=== PATIENT | female | born 1940 | race Caucasian/White ===

== ENCOUNTER → 2016-11-09 | Day surgery (SDC) | payer MEDICARE ==
[~2016-11-09] VITALS: Ht 160 cm; Wt 72.5 kg
[~2016-11-09] MED LIST: ALBI1INJ2 SQ; ASPI-110 PO; BUPR150XL PO; CHOL1CHW5 CHEW; FENO PO; HYALURONIDASE/LIDOCAINE/EPINEPHRINE/BUPIVACAINE 4.5 ML SYR LEFT EYE ONE; HYALURONIDASE/LIDOCAINE/EPINEPHRINE/BUPIVACAINE 6 ML SYR LEFT EYE ONE; HYDR-3516 PO; IBUP-232 PO; LIDOCAINE HCL 1% 20 ML VIAL ONE; LIDOCAINE HCL 1% 30 ML VIAL ONE; LISI10TA3 PO; METF850T PO; MIDAZOLAM HCL 2 MG/2 ML VIAL ONE; MULT1TAB84 PO; ONDA4TAB7 SL; PROPARACAINE HCL 0.5% OPHT SOLN 15 ML BTL LEFT EYE ONE; PROPOFOL 200 MG/20 ML AMP ONE; ROSU40 PO; SERT25TA83 PO; SODIUM CHLORID 0.9% 500 ML INJ 500 ML ONE; VITA500T49 PO
[2016-11-09 07:22] VITALS: PULSE 70
[2016-11-09 07:23] VITALS: BP 149/80; PULSE 63; RESP 20; TEMP 98.1; O2SAT 96
[2016-11-09] MEDS: FLURBIPROFEN 0.03% OPHT SOLN 2.5 ML BTL LEFT EYE SCH ×4 (07:30→07:45)
[2016-11-09] MEDS: TROPICAMIDE 1% OPHT SOLN 15 ML BTL LEFT EYE SCH ×4 (07:30→07:45)
[2016-11-09] MEDS: PHENYLEPHRINE HCL 10% OPTH SOLN 5 ML BTL LEFT EYE SCH ×4 (07:30→07:45)
[2016-11-09] MEDS: CYCLOPENTOLATE HCL 1% OPHT SOLN 2 ML BTL LEFT EYE SCH ×4 (07:30→07:45)
[2016-11-09] MEDS: TOBRAMYCIN/DEXAMETHASONE OPTH OINT 3.5 GM TUBE ONE ×2 (09:04→09:20)
[2016-11-09 09:30] VITALS: TEMP 98.1
[2016-11-09 09:55] VITALS: BP 139/68; PULSE 60; RESP 14; O2SAT 96
--- NOTE | 2016-11-12 04:46 | MP ---
cc: JORDI CAMARA MD [facility] #[id number] DATE OF SURGERY: 11/09/2016 PREOPERATIVE DIAGNOSIS: Visually significant cataract, left eye. POSTOPERATIVE DIAGNOSIS: Visually significant cataract, left eye. OPERATION: Phacoemulsification with posterior chamber lens implantation, left eye. SURGEON: Jordi Camara MD ANESTHESIA: Retrobulbar with MAC. COMPLICATIONS: None. PROCEDURE: After informed consent was obtained, the patient was brought into the operative suite and placed on appropriate monitors by the Anesthesia Service. The patient had received a prior retrobulbar injection of local anesthetic by the Anesthesia Service in the holding area. The patient's operative eye was then prepped and draped in the usual sterile fashion. A wire lid speculum was placed. A paracentesis incision was made in the peripheral cornea with a 1 mm laya keratome. The anterior chamber was filled with viscoelastic. The anterior chamber was then entered through a stepped, clear corneal incision using a sharp 3 mm laya keratome. A circular tear capsulorrhexis was then made with a bent needle cystitome. Following hydrodissection of the lens nucleus with balanced saline, phaco-emulsification of the nucleus was performed using a modified chopping technique. The remaining cortex was removed with irrigation/aspiration. The prior two procedures were both performed using the handpieces of the [employer] phaco unit. The capsular bag was then filled with viscoelastic. The intraocular lens was then injected into the capsular bag and positioned. The type of intraocular lens and its power can be found elsewhere in this chart. The remaining viscoelastic was then removed from the anterior chamber with the IA handpiece. The anterior chamber was reformed with balanced saline. The wound was then closed securely with stromal hydration. It was found to be watertight to an intraocular pressure of at least 30 mmHg by palpation. A small amount of balanced salt solution was then removed through the paracentesis site and the intraocular pressure at the end of the case was approximately 20 by palpation. All drapes were then removed. TobraDex ointment was then placed in the eye, which was closed beneath a semi-pressure patch dressing. The patient tolerated this procedure well and left the operating room awake and alert. The patient is to follow-up in my office in the morning. MD CATERINA Harvey/MARYAN /11:45 AM /4:44 AM
== END | disposition home or self-care (01) ==
LOC: CSDC 06:31
PROVIDERS: ATTEND Optometrist Occupational Vision
DX: H25.12 Age-related nuclear cataract, left eye (principal)
CPT/HCPCS: 00142; 66984; J2250; J7040; V2632

== ENCOUNTER 2016-11-24 12:24 | Emergency (ER) | payer MEDICARE ==
[~2016-11-24] VITALS: Ht 160 cm; Wt 73.0 kg
[~2016-11-24 12:24] MED LIST changes: -FENO PO; -HYALURONIDASE/LIDOCAINE/EPINEPHRINE/BUPIVACAINE 4.5 ML SYR LEFT EYE ONE; -HYALURONIDASE/LIDOCAINE/EPINEPHRINE/BUPIVACAINE 6 ML SYR LEFT EYE ONE; -IBUP-232 PO; -LIDOCAINE HCL 1% 20 ML VIAL ONE; -LIDOCAINE HCL 1% 30 ML VIAL ONE; -METF850T PO; -MIDAZOLAM HCL 2 MG/2 ML VIAL ONE; -PROPARACAINE HCL 0.5% OPHT SOLN 15 ML BTL LEFT EYE ONE; -PROPOFOL 200 MG/20 ML AMP ONE; -SERT25TA83 PO; -SODIUM CHLORID 0.9% 500 ML INJ 500 ML ONE
[2016-11-24 12:30] VITALS: BP 161/73; PULSE 64; RESP 16; TEMP 98.9; O2SAT 93
[2016-11-24 13:50] VITALS: RESP 16; O2SAT 97
--- NOTE | 2016-11-24 13:51 | PD ---
HPI Chief Complaint: Musculoskeletal Complaint Time Seen by Provider: 13:49 Travel History International Travel<30 days: No Contact w/Intl Traveler<30days: No Traveled to known affect area: No History of Present Illness HPI Patient comes in complaining of left-sided lower rib/upper abdominal pain began after slipping fall that occurred around 10 AM this morning. Patient states she was sorting newspapers when she went to get up with slipping on the newspapers hitting her left side of stool. Patient had a sharp stabbing pain since is worse with certain movement and deep inspiration. Patient took ibuprofen shortly after the fall and prior coming to the emergency department with minimal to no improvement of her symptoms. Patient denies being on any prescription blood thinners. Denies hitting her head or loss of consciousness. Denies loss or change in bowel or bladder, shortness breath, chest pain, fevers, nausea, or vomiting. PFSH Past Medical History Asthma: No Blood Disorders: No Anxiety: No Depression: Yes Heart Rhythm Problems: No Cancer: No Cardiovascular Problems: Yes High Cholesterol: Yes Chemotherapy: No Chest Pain: No Congestive Heart Failure: No COPD: Yes Cerebrovascular Accident: Yes (IN 1990 RESIDUAL DECREASED VISION) Diabetes: Yes (DIET CONTROLLED WITH PILLS) Patient Takes Glucophage: Yes Diminished Hearing: No Endocrine: Yes Gastrointestinal Disorders: Yes GERD: No Genitourinary: No Headaches: No Hepatitis: No Hiatal Hernia: No Hypertension: No Immune Disorder: No Musculoskeletal: No Neurologic: Yes Psychiatric: Yes Reproductive: No Respiratory: Yes Migraines: Yes Myocardial Infarction: Yes (2001) Radiation Therapy: No Seizures: No Sleep Apnea: No Thyroid Disease: No Ulcer: No Tetanus Vaccination: > 5 Years Influenza Vaccination: No ?: Not Menopausal: Yes Past Surgical History Abdominal Surgery: No AICD: No Appendectomy: No Arteriovenous Shunt: No Cardiac Surgery: Yes (STENT PLACED IN 2001) Cholecystectomy: No Ear Surgery: No Endocrine Surgery: No Eye Surgery: No Genitourinary Surgery: No Gynecologic Surgery: No Insulin Pump: No Joint Replacement: No Neurologic Surgery: Yes (RIGHT CAROTID THROMBOENDARTERECTOMY X 2) Oral Surgery: No Pacemaker: No Thoracic Surgery: No Other Surgery: Yes Social History Alcohol Use: Yes (on occasion) Tobacco Use: No (quit over 20 years ago) Substance Use: No Allergies-Medications (Allergen,Severity, Reaction): Coded Allergies: No Known Allergies (Verified , 11/24/16) Reported Meds & Prescriptions Reported Meds & Active Scripts Active Ibuprofen 600 Mg Tab 600 Mg PO Q8HR PRN Reported Vitamin D3 (Cholecalciferol) 2,000 Unit Chew 2,000 Units CHEW DAILY Vitamin B12 (Cyanocobalamin) 500 Mcg Tab 500 Mcg PO DAILY Multivitamin Adults (Multiple Vitamins W/ Minerals) 1 Tab 1 Tab PO DAILY Lisinopril 10 Mg Tab 10 Mg PO DAILY Tanzeum 4-Pack Inj (Albiglutide) 50 Mg Pfpen 50 Mg SQ Q7D Ondansetron Odt 4 Mg Tab 4 Mg SL Q6HR PRN Crestor (Rosuvastatin Calcium) 40 Mg Tab 40 Mg PO DAILY Wellbutrin Xl 24 HR (Bupropion HCl) 150 Mg Tab 150 Mg PO DAILY Hydrocodone-Acetaminophen 5-325 mg Tab 1 Tab PO Q6H PRN Aspirin 81 (Aspirin) 81 Mg Tabdr 81 Mg PO DAILY Review of Systems Except as stated in HPI: all other systems reviewed are Neg Physical Exam Narrative GENERAL: Well-developed, overly nourished, in no acute distress, and non-ill appearing. SKIN: Warm and dry. HEAD: Atraumatic. Normocephalic. EYES: Pupils equal and round. EOMI. No scleral icterus. No injection or drainage. ENT: No nasal bleeding or discharge. Mucous membranes pink and moist. NECK: Trachea midline. Supple. No nuclear rigidity. CARDIOVASCULAR: Regular rate and rhythm. No murmur appreciated. RESPIRATORY: No accessory muscle use. No respiratory distress. Clear to auscultation. Breath sounds equal bilaterally. Patient reports tenderness over left lateral lower rib cage. There is no crepitus, step-off, or ecchymosis noted. GASTROINTESTINAL: Abdomen soft, tenderness left upper quadrant, nondistended. Hepatic and splenic margins not palpable. Normal bowel sounds 4. No pulsatile mass. MUSCULOSKELETAL: No obvious deformities. No clubbing. No cyanosis. No edema. Full range of motion. NEUROLOGICAL: Awake and alert. No obvious cranial nerve deficits. Motor grossly within normal limits. Normal speech. PSYCHIATRIC: Appropriate mood and affect; insight and judgment normal. Data Data Last Documented VS Vital Signs Date Time Temp Pulse Resp B/P Pulse Ox O2 Delivery O2 Flow Rate FiO2 11/24/16 15:28 79 16 174/82 97 Room Air 11/24/16 12:30 98.9 Orders Ribs, Uni (W/Exp Cxr-Min 3vw) (11/24/16 ) Basic Metabolic Panel (Bmp) (11/24/16 13:48) Complete Blood Count With Diff (11/24/16 13:48) Ct Abd/Pel W Iv Contrast(Rout) (11/24/16 13:48) Iv Access Insert/Monitor (11/24/16 13:48) Ecg Monitoring (11/24/16 13:48) Oximetry (11/24/16 13:48) Sodium Chloride 0.9% Flush (Ns Flush) (11/24/16 14:00) Resp Incentive Spirometry (11/24/16 ) Iohexol 350 Inj (Omnipaque 350 Inj) (11/24/16 15:34) Urinalysis - C+S If Indicated (11/24/16 15:51) Naproxen (Naprosyn) (11/24/16 16:45) Labs Laboratory Tests Test 11/24/16 11/24/16 14:25 16:05 White Blood Count 9.8 TH/MM3 Red Blood Count 5.35 MIL/MM3 Hemoglobin 15.9 GM/DL Hematocrit 46.7 % Mean Corpuscular Volume 87.2 FL Mean Corpuscular Hemoglobin 29.6 PG Mean Corpuscular Hemoglobin 34.0 % Concent Red Cell Distribution Width 14.4 % Platelet Count 239 TH/MM3 Mean Platelet Volume 9.7 FL Neutrophils (%) (Auto) 74.7 % Lymphocytes (%) (Auto) 14.3 % Monocytes (%) (Auto) 7.0 % Eosinophils (%) (Auto) 2.5 % Basophils (%) (Auto) 1.5 % Neutrophils # (Auto) 7.4 TH/MM3 Lymphocytes # (Auto) 1.4 TH/MM3 Monocytes # (Auto) 0.7 TH/MM3 Eosinophils # (Auto) 0.2 TH/MM3 Basophils # (Auto) 0.1 TH/MM3 CBC Comment DIFF FINAL Differential Comment Sodium Level 143 MEQ/L Potassium Level 3.9 MEQ/L Chloride Level 107 MEQ/L Carbon Dioxide Level 28.6 MEQ/L Anion Gap 7 MEQ/L Blood Urea Nitrogen 14 MG/DL Creatinine 1.10 MG/DL Estimat Glomerular Filtration 48 ML/MIN Rate Random Glucose 247 MG/DL Calcium Level 9.3 MG/DL Urine Collection Type CLEAN CATCH Urine Color YELLOW Urine Turbidity CLEAR Urine pH 5.5 Urine Specific [place] GREATER THAN 1.035 Urine Protein NEG mg/dL Urine Glucose (UA) 1000 OR GREATER mg/dL Urine Ketones NEG mg/dL Urine Occult Blood TRACE Urine Nitrite NEG Urine Bilirubin NEG Urine Leukocyte Esterase NEG Urine RBC 0-3 /hpf Urine WBC 0-2 /hpf Urine Squamous Epithelial 0-5 /hpf Cells Microscopic Urinalysis Comment CULT NOT INDICATED MDM Medical Decision Making Medical Screen Exam Complete: Yes Emergency Medical Condition: Yes Differential Diagnosis Pneumothorax, fracture, contusion, splenic laceration, kidney laceration, other Narrative Course The patient suffered rib fracture with chest wall contusion. There is no clinical evidence to suggest intrathoracic injury nor cardiac injury at this time. There was no clinical evidence to suggest flail chest. The patient moves air well without difficulty and is clear to auscultation. Heart sounds are audible without rubs, murmurs or gallops. There is no palpable crepitus. Pulses are symmetrical and strong. Chest Xray was normal without evidence of pneumothorax or hemothorax. The mediastinum appeared within normal limits. Diagnosis was discussed with the patient. The patient was discharged on pain medication and with a Inspiratory Spirometer after training. The patient is to return if develops any worsening pain, difficulty breathing, or if coughs up blood or develops fever. Patient agrees with plan and was recommended to follow up with their regular physician. There is no evidence to suggest intraabdominal injury nor visceral injury. CT examination with IV contrast showed no injury.There is no evidence of injury to the liver,spleen, intestinal injury, or genitourinary/renal/ retroperitoneal injury. There is also no evidence of underlying pelvic injury. Diagnosis was discussed with the patient who agreed with plan. The patient was given warnings to return if pain worsened or changed or developed any vomiting, blood in urine or progressive back pain. The patient was instructed to follow up with their primary physician. Discussed incidental renal and ureteral stones with the patient. Patient states she believes these have been there for years after having lithotripsy done and has not moved or caused her any symptoms including the one in the distal ureter. Patient in no obvious distress upon re-evaluation. All pertinent laboratory/ Radiology result(s) discussed with patient/family. Patient was asked if they wanted to speak to my attending, which the patient did not wish to do at this time. Any questions/concerns in reference to patient diagnosis/condition discussed and clarified prior to patient's discharge. Reinforced sheer importance of close follow up with patient's primary physician or primary care clinic. Instructed patient to return to ED immediately, if symptoms return/ worsen. Pt showed understanding of above instructions. Further instructions and recommendations were detailed in discharge paperwork. Pt ambulated without difficulty out of ED at discharge. Diagnosis Primary Impression: Left rib fracture Qualified Code: S22.42XA - Closed fracture of multiple ribs of left side, initial encounter Additional Impressions: Renal stone Ureteral stone Fall Qualified Code: W19.XXXA - Fall, initial encounter Patient Instructions: General Instructions, Kidney Stones (DC), Rib Fracture ( ED), Ureteral Stones (DC) Additional Instructions: Follow-up with your primary care physician next week for reevaluation and possible urology referral. Take all medication as prescribed. Use your incentive spirometer 10 times per hour as instructed to help prevent pneumonia. Return to the emergency department if symptoms get worse. Med/Other Pt SpecificInfo: Prescription(s) given Scripts Ibuprofen 600 Mg Ing408 Mg PO Q8HR PRN (PAIN) #15 TAB Ref 0 Prov:Rand Monreal MD 11/24/16 Disposition: 01 DISCHARGE HOME Condition: Stable Seth Gordillo Nov 24, 2016 13:51
[2016-11-24] MEDS ORDERED: SODIUM CHLORIDE 0.9% FLUSH 5 ML FLUSH IVF PRN (14:00)
--- NOTE | 2016-11-24 14:30 | RADHPO ---
EXAM DATE/TIME: 11/24/2016 13:51 [facility] COMPARISON: No previous studies available for comparison. INDICATIONS : Fall and landed on magazines MEDICAL HISTORY : Chronic obstructive pulmonary disease. Diabetes SURGICAL HISTORY : ENCOUNTER: Initial ACUITY: 1 day PAIN SCORE: 10/10 LOCATION: Left ribs FINDINGS: The heart is normal in size. The lungs demonstrate mild chronic interstitial changes but are otherwis e clear. Oblique imaging of the ribs is provided. The exam demonstrates fracture of the anterolateral aspect o f the ninth, 10th and 11th ribs. CONCLUSION: 1. Mildly displaced fracture at least 3 left lower ribs. 2. No pneumothorax identified. Nilay Farr MD on November 24, 2016 at 14:26 Board Certified Radiologist. This report was verified electronically.
[2016-11-24 14:33] LABS: AUTOMATED NEUTROPHIL # 7.4 TH/MM3 (1.8-7.7); BASOPHIL # 0.1 TH/MM3 (0-0.2); BASOPHIL % 1.5 % (0.0-2.0); EOSINOPHIL # 0.2 TH/MM3 (0-0.4); EOSINOPHIL % 2.5 % (0.0-4.0); HEMATOCRIT 46.7 % (35.0-46.0); LYMPH % 14.3 % (9.0-44.0); LYMPHOCYTE # 1.4 TH/MM3 (1.0-4.8); MEAN CELL VOLUME 87.2 FL (80.0-100.0); MEAN CORPUSCULAR HEMOGLOBIN 29.6 PG (27.0-34.0); NEUT % 74.7 % (16.0-70.0); PLATELET COUNT 239 TH/MM3 (150-450); RED BLOOD COUNT 5.35 MIL/MM3 (4.00-5.30); RED CELL DISTRIBUTION WIDTH 14.4 % (11.6-17.2); WHITE BLOOD COUNT 9.8 TH/MM3 (4.0-11.0)
[2016-11-24 14:34] LABS: HEMO FLAGS DIFF FINAL
[2016-11-24 14:40] LABS: POTASSIUM 3.9 MEQ/L (3.5-5.1)
[2016-11-24 14:43] LABS: BICARBONATE 28.6 MEQ/L (21.0-32.0)
[2016-11-24 15:28] VITALS: BP 174/82; PULSE 79; RESP 16; O2SAT 97
[2016-11-24] MEDS ORDERED: IOHEXOL 350 MG/ML 10 ML VIAL (for RAD DIAG) IV ONE (15:34)
--- NOTE | 2016-11-24 15:44 | RADHPO ---
EXAM DATE/TIME: 11/24/2016 15:10 [facility] COMPARISON: RIBS LEFT(W PA CXR MIN 3VWS), November 24, 2016, 13:51. INDICATIONS : Fall today. Left lower rib and abdomen pain. IV CONTRAST: 94 cc Omnipaque 350 (iohexol) IV ORAL CONTRAST: No oral contrast ingested. RADIATION DOSE: 14.88 CTDIvol (mGy) MEDICAL HISTORY : Chronic obstructive pulmonary disease. Myocardial infarction. Diabetes. SURGICAL HISTORY : None. ENCOUNTER: Initial ACUITY: 1 day PAIN SCALE: 7/10 LOCATION: Left upper quadrant TECHNIQUE: Volumetric scanning of the abdomen and pelvis was performed. Using automated exposure control and ad justment of the mA and/or kV according to patient size, radiation dose was kept as low as reasonably achievable to obtain optimal diagnostic quality images. FINDINGS: LOWER LUNGS: The visualized lower lungs are clear. There is a small to moderate size retrocardiac hiatal hernia. LIVER: Homogeneous density without lesion. There is no dilation of the biliary tree. No calcified gallston es. There is fatty infiltration of the liver. SPLEEN: Normal size without lesion. PANCREAS: Within normal limits. KIDNEYS: There is moderate left hydronephrosis with mild dilatation of the ureter. There are multiple left dee al calculi measuring up to 7 mm. The right kidney is unremarkable. ADRENAL GLANDS: Within normal limits. VASCULAR: There is no aortic aneurysm. BOWEL/MESENTERY: The stomach, small bowel, and colon demonstrate no acute abnormality. There is no free intraperitone al air or fluid. ABDOMINAL WALL: Within normal limits. RETROPERITONEUM: There is no lymphadenopathy. BLADDER: No wall thickening or mass. REPRODUCTIVE: Within normal limits. INGUINAL: There is no lymphadenopathy or hernia. MUSCULOSKELETAL: There are subtle nondisplaced fractures involving the left and and 12th posterior ribs. CONCLUSION: 1. 4-5 mm distal left ureteral calculus with moderate hydronephrosis. 2. Subtle nondisplaced fractures involving the posterior left 12th and 11th ribs. 3. Multiple left renal calculi. 4. Fatty infiltration of the liver. 5. Small to moderate size retrocardiac hiatal hernia. Allen Zhang MD on November 24, 2016 at 15:34 Board Certified Radiologist. This report was verified electronically.
[2016-11-24 16:11] LABS: BLOOD, URINE TRACE (NEG); KETONE, URINE NEG (NEG); NITRITE,URINE NEG (NEG); PH, URINE 5.5 (5.0-8.5)
[2016-11-24 16:13] LABS: GLUCOSE,URINE 1000 OR GREATER mg/dL (NEG)
[2016-11-24 16:26] LABS: METHOD OF COLLECTION CLEAN CATCH; URINE COLOR YELLOW (YELLW/STRAW)
[2016-11-24 16:28] LABS: WBC, URINE 0-2 /hpf (0-5)
[2016-11-24 16:29] LABS: COMMENT (UR) CULT NOT INDICATED; CULTURE IF INDICATED CULT NOT INDICATED; RBC, URINE 0-3 /hpf (0-3); SQUAMOUS EPITHELIAL CELL URINE 0-5 /hpf (0-5)
[2016-11-24] MEDS ORDERED: IBUP-232 PO (16:39)
[2016-11-24] MEDS ORDERED: NAPROXEN 500 MG TAB PO ONE (16:45)
== END 2016-11-24 16:51 | disposition home or self-care (01) ==
LOC: PHED 12:24 → PHEFT 16:51
DX: S22.42XA Multiple fractures of ribs, left side, initial encounter for closed fracture (principal); S20.219A Contusion of unspecified front wall of thorax, initial encounter; N20.0 Calculus of kidney; N20.1 Calculus of ureter; E78.00 Pure hypercholesterolemia, unspecified; E11.9 Type 2 diabetes mellitus without complications; I25.2 Old myocardial infarction; Z79.84 Long term (current) use of oral hypoglycemic drugs; Z86.59 Personal history of other mental and behavioral disorders; Z87.09 Personal history of other diseases of the respiratory system; Z87.19 Personal history of other diseases of the digestive system; Z86.69 Personal history of other diseases of the nervous system and sense organs; W01.190A Fall on same level from slipping, tripping and stumbling with subsequent striking against furniture, initial encounter
CPT/HCPCS: 71101; 74177; 80048; 81001; 85025; 94150; 99284; Q9967

== ENCOUNTER → 2016-12-14 | Day surgery (SDC) | payer MEDICARE ==
[~2016-12-14] VITALS: Ht 160 cm; Wt 73.0 kg
[~2016-12-14] MED LIST changes: +CYCLOPENTOLATE HCL 1% OPHT SOLN 2 ML BTL ONE; +FLURBIPROFEN 0.03% OPHT SOLN 2.5 ML BTL ONE; +HYALURONIDASE/LIDOCAINE/EPINEPHRINE/BUPIVACAINE 6 ML SYR ONE; +IBUP-232 PO; +LIDOCAINE HCL 1% 30 ML VIAL ONE; +PHENYLEPHRINE HCL 10% OPTH SOLN 5 ML BTL ONE; +PROPARACAINE HCL 0.5% OPHT SOLN 15 ML BTL ONE; +PROPOFOL 200 MG/20 ML AMP ONE; +SODIUM CHLORID 0.9% 500 ML INJ 500 ML ONE; +TOBRAMYCIN/DEXAMETHASONE OPTH OINT 3.5 GM TUBE ONE; +TROPICAMIDE 1% OPHT SOLN 15 ML BTL ONE
[2016-12-14 07:54] VITALS: BP 165/89; PULSE 69; RESP 16; TEMP 97.9; O2SAT 97
[2016-12-14 08:05] VITALS: PULSE 69
[2016-12-14 08:24] VITALS: PULSE 74
[2016-12-14 09:55] VITALS: BP 145/82; PULSE 70; RESP 16; TEMP 98.5; O2SAT 97
--- NOTE | 2016-12-17 06:48 | MP ---
cc: JORDI CAMARA MD [facility] #[id number] DATE OF SURGERY: 12/14/2016 PREOPERATIVE DIAGNOSIS: Visually significant cataract, right eye. POSTOPERATIVE DIAGNOSIS: Visually significant cataract, right eye. OPERATION: Phacoemulsification with posterior chamber lens implantation, right eye. SURGEON: Jordi Camara MD ANESTHESIA: Retrobulbar with MAC. COMPLICATIONS: None. PROCEDURE: After informed consent was obtained, the patient was brought into the operative suite and placed on appropriate monitors by the Anesthesia Service. The patient had received a prior retrobulbar injection of local anesthetic by the Anesthesia Service in the holding area. The patient's operative eye was then prepped and draped in the usual sterile fashion. A wire lid speculum was placed. A paracentesis incision was made in the peripheral cornea with a 1 mm laya keratome. The anterior chamber was filled with viscoelastic. The anterior chamber was then entered through a stepped, clear corneal incision using a sharp 3 mm laya keratome. A circular tear capsulorrhexis was then made with a bent needle cystitome. Following hydrodissection of the lens nucleus with balanced saline, phaco-emulsification of the nucleus was performed using a modified chopping technique. The remaining cortex was removed with irrigation/aspiration. The prior two procedures were both performed using the handpieces of the [employer] phaco unit. The capsular bag was then filled with viscoelastic. The intraocular lens was then injected into the capsular bag and positioned. The type of intraocular lens and its power can be found elsewhere in this chart. The remaining viscoelastic was then removed from the anterior chamber with the IA handpiece. The anterior chamber was reformed with balanced saline. The wound was then closed securely with stromal hydration. It was found to be watertight to an intraocular pressure of at least 30 mmHg by palpation. A small amount of balanced salt solution was then removed through the paracentesis site and the intraocular pressure at the end of the case was approximately 20 by palpation. All drapes were then removed. TobraDex ointment was then placed in the eye, which was closed beneath a semi-pressure patch dressing. The patient tolerated this procedure well and left the operating room awake and alert. The patient is to follow-up in my office in the morning. MD CATERINA Harvey/MARYAN /9:56 AM /5:28 AM
== END | disposition home or self-care (01) ==
LOC: PHSDC 06:56
PROVIDERS: ATTEND Optometrist Occupational Vision
DX: H25.811 Combined forms of age-related cataract, right eye (principal)
CPT/HCPCS: 00142; 66984; J7040; V2632

== ENCOUNTER 2018-06-17 17:16 | Observation (INO) ==
--- NOTE | 2018-06-17 17:52 | ED ---
HPI General Chief Complaint: Recheck/Abnormal Lab/Rx Stated Complaint: Diabetic Time Seen by Provider: 06/17/18 17:40 Source: patient and EMS Mode of arrival: EMS Limitations: no limitations History of Present Illness HPI narrative: 77-year-old female patient with history of diabetes, multiple medical issues, had been admitted in [place] for right leg infection, had been released from rehab there and is returning back home, and states that she has lost a lot of weight, and over the last few days, her home health nurse has noticed that her blood sugars have been running low. She states that this morning her blood sugars were in the 20s, and she states she is eating but not very much. She denies any vomiting, fevers, or other symptoms. She states that her home health care nurse has been trying to feed her and give her food but the sugars are still running low. She was not given her insulin today. However, she did take her morning medications. Related Data Home Medications Medication Instructions Recorded Confirmed bupropion HCl 150 mg PO DAILY 06/17/18 06/17/18 metformin 750 mg PO DAILY 06/17/18 06/17/18 Allergies Allergy/AdvReac Type Severity Reaction Status Date / Time No Known Allergies Allergy Verified 06/17/18 19:14 Review of Systems ROS: all other systems reviewed are negative [facility] Medical History Medical History Diabetes (Acute) Stroke (Acute) Social History Social History Substance History: No History of Abuse Second Hand Smoke Exposure: No Smoking Status: Never smoker How Often Do You Have a Drink Containing Alcohol: Never Recent Travel in [facility] within the Last 8 Weeks: Yes Recent Out of Country Travel within the Last 8 Weeks: No Immunization History Tetanus Immunization: Unsure Hx Influenza Vaccine This Season: Yes Exam Narrative Exam Narrative: GENERAL: Well-developed elderly white female patient currently and no acute distress. Awake and oriented 3. SKIN: Focused skin assessment warm/dry. HEAD: Atraumatic. Normocephalic. EYES: Pupils equal and round. No scleral icterus. No injection or drainage. ENT: No nasal bleeding or discharge. Mucous membranes pink and moist. NECK: Trachea midline. No JVD. CARDIOVASCULAR: Regular rate and rhythm. No murmur appreciated. RESPIRATORY: No accessory muscle use. Clear to auscultation. Breath sounds equal bilaterally. GASTROINTESTINAL: Abdomen soft, non-tender, nondistended. Hepatic and splenic margins not palpable. MUSCULOSKELETAL: No obvious deformities. No clubbing. No cyanosis. No edema. Right leg wrapped in dressing. NEUROLOGICAL: Awake and alert. No obvious cranial nerve deficits. Motor grossly within normal limits. Normal speech. PSYCHIATRIC: Appropriate mood and affect; insight and judgment normal. Course Initial Documented Vital Signs Temperature 97.8 F 06/17/18 17:30 Pulse Rate 75 06/17/18 17:30 Respiratory Rate 18 06/17/18 17:30 Blood Pressure 114/56 L 06/17/18 17:30 Pulse Oximetry 97 06/17/18 17:30 Last Documented Vital Signs Temperature 97.8 F 06/17/18 17:30 Pulse Rate 75 06/17/18 19:48 Respiratory Rate 16 06/17/18 19:48 Blood Pressure 119/58 L 06/17/18 19:48 Pulse Oximetry 95 06/17/18 17:37 Medical Decision Making [facility] Narrative Medical decision making narrative: Lab work does show some elevated renal function tests, but this could be worsening her hypoglycemia as well. She is on glimepiride which she did take this morning. At this point, my plan would be to admit her as an observation for follow-up of glucose, I have fed her dinner as well. Case is discussed with Dr. Bustillos who states the patient can be admitted to Dr. Gonsalves for admission. Medical Screen Exam Complete: Yes Emergency Medical Condition: Yes Differential Diagnosis Differential Diagnosis: Hypoglycemic episodes: Evaluate for renal failure versus hepatic failure versus overmedication versus dehydration versus sepsis Lab Data Lab results reviewed: Yes I reviewed the patient's lab results. Result diagrams: 06/17/18 17:45 06/17/18 17:45 Lab Results 06/17/18 06/17/18 Range/Units 17:45 17:45 WBC 10.3 (4.0-11.0) th/mm3 RBC 4.12 (4.00-5.30) mil/mm3 Hgb 11.6 (11.6-15.3) gm/dL Hct 33.8 L (35.0-46.0) % MCV 82.0 (80.0-100.0) fL MCH 28.2 (27.0-34.0) pg MCHC 34.4 (32.0-36.0) % RDW 16.8 (11.6-17.2) % Plt Count 341 (150-450) th/mm3 MPV 8.4 (7.0-11.0) fL Neut % (Auto) 73.4 H (16.0-70.0) % Lymph % (Auto) 15.1 (9.0-44.0) % [place] % (Auto) 9.6 H (0.0-8.0) % Eos % (Auto) 1.6 (0.0-4.0) % Baso % (Auto) 0.3 (0.0-2.0) % Neut # (Auto) 7.6 (1.8-7.7) th/mm3 Lymph # (Auto) 1.6 (1.0-4.8) th/mm3 [place] # (Auto) 1.0 H (0.0-0.9) th/mm3 Eos # (Auto) 0.2 (0.0-0.4) th/mm3 Baso # (Auto) 0.0 (0.0-0.2) th/mm3 WBC Differential . Differential Comment Auto diff final Sodium 137 (136-145) meq/L Potassium 4.8 (3.5-5.1) meq/L Chloride 102 (98-107) meq/L Carbon Dioxide 25.4 (21.0-32.0) meq/L Anion Gap 10 (5-15) meq/L BUN 35 H (7-18) mg/dL Creatinine 1.78 H (0.50-1.00) mg/dL Estimated GFR 28 L (>89) mL/min Random Glucose 144 H (74-106) mg/dL Calcium 9.2 (8.5-10.1) mg/dL Total Bilirubin 0.2 (0.2-1.0) mg/dL AST 23 (15-37) U/L ALT 10 (10-53) U/L Alkaline Phosphatase 130 H (45-117) U/L Total Protein 7.0 (6.4-8.2) g/dL Albumin 2.7 L (3.4-5.0) g/dL Discharge Plan Discharge Disposition Patient Disposition: 30 Still Patient Discharge Condition Condition: Stable Discharge Details Anticipated Discharge Date: 06/17/18 Diagnosis: Multiple episodes of hypoglycemia Physicians Team ED Provider: Zulma Norris Primary Care Provider: Regan Frye Attending Provider: Karlos Gonsalves Discharge Interventions Interventions: Vital Signs Last Done: 06/17/18 19:48 Status ED Status: Admitted Observation Patient
[2018-06-17 18:13] LABS: Baso % (Auto) 0.3 % (0.0-2.0); Eos # (Auto) 0.2 th/mm3 (0.0-0.4); Eos % (Auto) 1.6 % (0.0-4.0); Hematocrit 33.8 % (35.0-46.0); Hemoglobin 11.6 gm/dL (11.6-15.3); Lymph # (Auto) 1.6 th/mm3 (1.0-4.8); Lymph % (Auto) 15.1 % (9.0-44.0); Mean Corpuscular HGB Conc 34.4 % (32.0-36.0); Mean Corpuscular Hemoglobin 28.2 pg (27.0-34.0); Mean Platelet Volume 8.4 fL (7.0-11.0); Mono % (Auto) 9.6 % (0.0-8.0); Neut # (Auto) 7.6 th/mm3 (1.8-7.7); Neut % (Auto) 73.4 % (16.0-70.0); Platelet Count 341 th/mm3 (150-450); Red Blood Count 4.12 mil/mm3 (4.00-5.30); Red Cell Distribution Width 16.8 % (11.6-17.2); White Blood Count 10.3 th/mm3 (4.0-11.0)
[2018-06-17 18:26] LABS: Albumin 2.7 g/dL (3.4-5.0); Anion Gap 10 meq/L (5-15); Aspartate Aminotransferase 23 U/L (15-37); Blood Urea Nitrogen 35 mg/dL (7-18); Calcium 9.2 mg/dL (8.5-10.1); Carbon Dioxide 25.4 meq/L (21.0-32.0); Chloride 102 meq/L (98-107); Glomerular Filtration Rate 28 mL/min (>89); Glucose,Random 144 mg/dL (74-106); Potassium 4.8 meq/L (3.5-5.1); Sodium 137 meq/L (136-145)
[2018-06-17 18:27] LABS: Alanine Aminotransferase 10 U/L (10-53)
[2018-06-17 18:29] LABS: Alkaline Phosphatase 130 U/L (45-117)
[2018-06-17] MEDS ORDERED: Temazepam 15 MG Capsule PO PRN (21:44)
[2018-06-17] MEDS ORDERED: Bisacodyl 10 MG Supp RECTAL PRN (21:44)
[2018-06-17] MEDS ORDERED: Dextrose 50% in Water 50 ML Vial IV.PUSH PRN (21:50)
[2018-06-17] MEDS ORDERED: Enoxaparin Inj 30 MG/0.3 ML Syringe SQ SCH (22:00)
--- NOTE | 2018-06-17 22:08 | P.HP ---
[facility] Physician: Regan Frye MD Chief Complaint: Several episodes of hypoglycemia History of Present Illness: 77-year-old white female patient with a history of diabetes, multiple medical issues, had been admitted in [place] for left leg infection, and had been in a rehab center until about 3 days ago. Patient has a history of diabetes and has been on glimepiride 2 mg a day is on FlexPen insulin and also is on Metformin 750 a day since prior to her episode in [place] she was diagnosed their cat scratch fever about 2 months ago she required hospitalization she ended up having a wound infection to the left heel area which required resection of the Achilles tendon. And was under wound care for open wound treatment has been on antibiotics up until arrival in [place]. During her stay in the hospital and in the rehab center in [place] the patient has lost approximately 20 pounds and her sugar has been fluctuating mainly on the hypoglycemic range. With the blood sugars running low the patient continued to take her p.o. medication she had called 911 ounce on 3 occasions. It was approximately 40 and came to the emergency room today here in the emergency room his sugar is 130 she has been followed by wound care nurse through [facility] and has appointment tomorrow to see in the wound care doctor patient says there was a plan for her to go back up to [place] for skin grafting to that heel area however due to cost that will not be done she will need to see someone down here. Patient with extreme difficulty in ambulating due to generalized weakness. Patient denies chest pain shortness of breath nausea vomiting syncope. We will admit to observation status to obtain every 6 glucoses and use NovoLog insulin as necessary for now and review of the labs patient has a creatinine 1.78 will hold off on the use of metformin we will decrease her glimepiride to 1 mg a day and hold off on the FlexPen insulin. - Diagnosis (1) Multiple episodes of hypoglycemia (2) Open wound of left foot (3) Weakness (4) Depression Review of Systems All other systems reviewed negative except as stated in HPI [facility] - History History Provided By: Patient - Medical History Medical History: Medical History (Last Reviewed 06/17/18 @ 22:04 by Richard Elizabeth MD) Diabetes Stroke - Tobacco History Second Hand Smoke Exposure: No Tobacco Use In Past 30 Days: No Smoking Status: Never smoker - Alcohol History How Often Do You Have a Drink Containing Alcohol: Never - Substance Use History Substance History: No History of Abuse - Travel History Recent Travel in the [place] Within the Last 8 Weeks: Yes Recent Travel Out of the Country Within the Last 8 Weeks: No - Immunization History Tetanus Immunization: Unsure Hx Influenza Vaccine This Season: Yes Medications and Allergies Active Medications: Active Medications Hydrocodone Bitart/Acetaminophen (Alkol 5/325) 1 tab PO Q4H PRN PRN Reason: PAIN SCALE 6 TO 10 Al Hydroxide/Mg Hydroxide (Milk Of Magnesia Liq) 30 ml PO Q12H PRN PRN Reason: Mild Constipation Aspirin (Ecotrin) 81 mg PO DAILY RADHA Atorvastatin Calcium (Lipitor) 80 mg PO HS [facility]HA Bisacodyl (Dulcolax Supp) 10 mg RECTAL DAILY PRN PRN Reason: SEVERE CONSITIPATION Bupropion HCl (Wellbutrin Sr) 150 mg PO DAILY [facility] Dextrose (D50w Vial) 50 ml IV.PUSH UNSCH PRN PRN Reason: PER HYPOGLYCEMIA PROTOCOL Enoxaparin Sodium (Lovenox Inj) 30 mg SQ Q24H [facility] Glucagon (Glucagon Inj) 1 mg OTHER PRN PRN PRN Reason: for Hypoglycemia Protocol Insulin Aspart (Novolog Insulin Correctional Sugar Inj) 0 unit SQ Q6HR RADHA; Protocol Lactulose (Lactulose Liq) 30 ml PO DAILY PRN PRN Reason: SEVERE CONSITIPATION Lisinopril (Prinivil) 10 mg PO DAILY [facility] Senna/Docusate Sodium (Melinda-Colace) 1 tab PO BID [facility] Sennosides (Senokot) 17.2 mg PO Q12H PRN PRN Reason: Moderate Constipation Sertraline HCl (Zoloft) 50 mg PO DAILY [facility] Sodium Chloride (Ns Flush) 2 ml IV.FLUSH PRN PRN PRN Reason: FLUSH AFTER USING IV ACCESS Temazepam (Restoril) 15 mg PO HS PRN PRN Reason: INSOMNIA Allergies Allergy/AdvReac Type Severity Reaction Status Date / Time No Known Allergies Allergy Verified 06/17/18 19:14 Home Medications Medication Instructions Recorded Confirmed Type aspirin 81 mg PO DAILY 06/17/18 06/17/18 History atorvastatin 80 mg PO HS 06/17/18 06/17/18 History bupropion HCl 150 mg PO DAILY 06/17/18 06/17/18 History glimepiride 2 mg PO QAM 06/17/18 06/17/18 History hydrocodone-acetaminophen 1 tab PO Q4-6H PRN MDD 4 06/17/18 06/17/18 History insulin aspart U-100 [Novolog 10 unit SUB-Q PRN PRN MDD 10 06/17/18 06/17/18 History Flexpen U-100 Insulin] lisinopril 10 mg PO DAILY 06/17/18 06/17/18 History metformin 750 mg PO DAILY 06/17/18 06/17/18 History pen needle, diabetic, safety 06/17/18 06/17/18 History [Novofine Autocover] sertraline 50 mg PO DAILY 06/17/18 06/17/18 History Exam Vital signs: Vital Signs 06/17/18 17:30 06/17/18 17:37 06/17/18 19:14 Temperature 97.8 F Pulse Rate 75 74 75 Respiratory Rate 18 18 17 Blood Pressure 114/56 L 114/56 L 109/66 Pulse Oximetry 97 95 06/17/18 19:48 Temperature Pulse Rate 75 Respiratory Rate 16 Blood Pressure 119/58 L Pulse Oximetry Intake & Output 06/17/18 06/17/18 06/18/18 06:59 18:59 06:59 Weight 56.699 kg Narrative: GENERAL: SKIN: Warm and dry. left lower extremity has bandage from wound care today HEAD: Normocephalic. EYES: No scleral icterus. No injection or drainage. NECK: Supple, trachea midline. No JVD or lymphadenopathy. CARDIOVASCULAR: Regular rate and rhythm without murmurs, gallops, or rubs. RESPIRATORY: Breath sounds equal bilaterally. No accessory muscle use. GASTROINTESTINAL: Abdomen soft, non-tender, nondistended. MUSCULOSKELETAL: No cyanosis, or edema. BACK: Nontender without obvious deformity. No CVA tenderness. Results - Labs CBC & Chem 7: 06/17/18 17:45 06/17/18 17:45 Labs: Laboratory Results - last 24 hr 06/17/18 06/17/18 17:45 17:45 WBC 10.3 RBC 4.12 Hgb 11.6 Hct 33.8 L MCV 82.0 MCH 28.2 MCHC 34.4 RDW 16.8 Plt Count 341 MPV 8.4 Neut % (Auto) 73.4 H Lymph % (Auto) 15.1 [place] % (Auto) 9.6 H Eos % (Auto) 1.6 Baso % (Auto) 0.3 Neut # (Auto) 7.6 Lymph # (Auto) 1.6 [place] # (Auto) 1.0 H Eos # (Auto) 0.2 Baso # (Auto) 0.0 WBC Differential . Differential Comment Auto diff final Sodium 137 Potassium 4.8 Chloride 102 Carbon Dioxide 25.4 Anion Gap 10 BUN 35 H Creatinine 1.78 H Estimated GFR 28 L Random Glucose 144 H Calcium 9.2 Total Bilirubin 0.2 AST 23 ALT 10 Alkaline Phosphatase 130 H Total Protein 7.0 Albumin 2.7 L Caprini VTE Risk Assessment Caprini VTE Risk Assessment: Moderate/High Risk (score >= 2) Caprini Risk Assessment Model: Point Value = 1 Point Value = 2 Point Value = 3 Point Value = 5 Age 41-60 Minor surgery BMI > 25 kg/m2 Swollen legs Varicose veins or History of unexplained or recurrent spontaneous Oral contraceptives or hormone replacement Sepsis (< 1 month) Serious lung disease, including pneumonia (< 1 month) Abnormal pulmonary function Acute myocardial infarction Congestive heart failure (< 1 month) History of inflammatory bowel disease Medical patient at bed rest Age 61-74 Arthroscopic surgery Major open surgery (> 45 min) Laparoscopic surgery (> 45 min) Malignancy Confined to bed (> 72 hours) Immobilizing plaster cast Central venous access Age >= 75 History of VTE Family history of VTE Factor V Leiden Prothrombin [id number] Lupus anticoagulant Anticardiolipin antibodies Elevated serum homocysteine Heparin-induced thrombocytopenia Other congenital or acquired thrombophilia Stroke (< 1 month) Elective arthroplasty Hip, pelvis, or leg fracture Acute spinal cord injury (< 1 month) Prophylaxis Regimen: Total Risk Factor Score Risk Level Prophylaxis Regimen 0-1 Low Early ambulation 2 Moderate Order ONE of the following: *Sequential Compression Device (SCD) *Heparin 5000 units SQ BID 3-4 Higher Order ONE of the following medications: *Heparin 5000 units SQ TID *Enoxaparin/Lovenox 40 mg SQ daily (WT < 150 kg, CrCl > 30 mL/min) *Enoxaparin/Lovenox 30 mg SQ daily (WT < 150 kg, CrCl > 10-29 mL/min) *Enoxaparin/Lovenox 30 mg SQ BID (WT < 150 kg, CrCl > 30 mL/min) AND/OR *Sequential Compression Device (SCD) 5 or more Highest Order ONE of the following medications: *Heparin 5000 units SQ TID (Preferred with Epidurals) *Enoxaparin/Lovenox 40 mg SQ daily (WT < 150 kg, CrCl > 30 mL/min) *Enoxaparin/Lovenox 30 mg SQ daily (WT < 150 kg, CrCl > 10-29 mL/min) *Enoxaparin/Lovenox 30 mg SQ BID (WT < 150 kg, CrCl > 30 mL/min) AND *Sequential Compression Device (SCD) Assessment and Plan - Assessment (1) Multiple episodes of hypoglycemia Code(s): E16.2 - Hypoglycemia, unspecified Status: Acute Plan: Plan is to obtain q. 6 hour sugars with coverage using NovoLog insulin and will continue glimepiride at a 1 mg dose at this time patient does have an out patient code inspector and she will need to follow-up with him when she is discharged (2) Open wound of left foot Code(s): S91.302A - Unspecified open wound, left foot, initial encounter Status: Acute Plan: Open wound of left [place] also was seen by [facility] care in her house and has an appointment upcoming with wound care physician as she is in the hospital will have our wound care physician here see the patient as well as there may be a plan which may be requiring skin grafting (3) Weakness Code(s): R53.1 - Weakness Status: Acute Plan: We will ask physical therapy to see her for generalized weakness will need some type of walker when she is discharged (4) Depression Code(s): F32.9 - Major depressive disorder, single episode, unspecified Status : Acute Plan: Patient with history of chronic depression is on Wellbutrin and sertraline - Plan Further plan pending review of her sugar levels
[2018-06-18] MEDS: Insulin NovoLOG Aspart Correctional Sugar Inj SQ SCH ×3 (05:47→13:15)
[2018-06-18] MEDS ORDERED: Glimepiride 1 MG Tablet PO SCH (07:00)
[2018-06-18] MEDS ORDERED: Sertraline 50 MG Tablet PO SCH (09:00)
[2018-06-18] MEDS ORDERED: Lisinopril 10 MG Tablet PO SCH (09:00)
[2018-06-18] MEDS ORDERED: buPROPion 150 MG 12 HR Tablet PO SCH (09:00)
[2018-06-18] MEDS ORDERED: Senna/Docusate Sodium 8.6/50 MG Tablet PO SCH (09:00)
[2018-06-18 13:07] LABS: Calcium 9.4 mg/dL (8.5-10.1); Carbon Dioxide 27.7 meq/L (21.0-32.0); Potassium 5.5 meq/L (3.5-5.1)
--- NOTE | 2018-06-18 15:57 | P.PNWCN ---
Wound Care Nurse Consult Description: Wound consult ordered by for wound evaluation/management. Communicated with: Tatyana DOMINIQUE, Recommendation: 1. Cleanse right manager operating lower extremity with normal saline pat dry 2. Apply single layer of adaptic gauze cover with Optifoam AG secure with rolled gauze/paper tape and stockinette. 3. Date and sign all dressings, Change dressing every other day or as needed for dislodgement/exudate management. 4. Please follow up with out patient wound center within 48 hours of discharge Additional information: Patient was seen today by script writer for wound evaluation and management.Patient alert and oriented x4 resting in bed with spouse at bedside.per patient wound was surgically created after a cat bite getting infected requiring tendon repair in [place].Dressing removed from right lower extremity with out difficulty .wound cleansed with normal saline pat dry.Patient has 85% beefy red granulating tissue 15% stable black adhered eschar full thickness wound to posterior distal lower extremity measuring ~15cm x ~6.0cm x 0.2 wound edges are well defined sloped with wound base.Scant serosanguineous exudate noted without odor.Mild erythema noted to periwound circumferentially.Wound edges are contacting.Skin prep applied to periwound and single layer od adaptic gauze applied to wound base covered with Optifoam AG secured with ABD.rolled gauze/paper tape.Patient tolerated wound care well will need follow up with out patient wound center for possible graft placement.3 intact kayla noted to periwound. Wound/Pressure Injury - Patient Status Premedicated for Pain Prior to Dressing Change: No - Wound Left Foot Wound Type: Traumatic Wound Is This a Chronic Wound: Yes Requested from Provider a Wound Care Consult: No (Noah DOMINIQUE,[facility] seen 06/18) Length: 15 Width: 6 Depth: 0.2 Wound Bed Appearance: Necrotic, Red, [place] Wound Bed Appearance: 85% beefy red granular tissue 15% adhered black/yellow slough Surrounding Tissue Temperature: Cool Drainage Description: Serosanguinous Drainage Amount: Minimal Drainage Odor: No Odor Dressing Status: Changed Cleansing Solution: Saline Primary Dressing: Gauze Pad Cover Dressing: Optifoam AG Tape Type: Paper Wound Dressing Change Date: 06/18/18
--- NOTE | 2018-06-18 16:37 | P.DCO ---
- Home Health Nursing Order: Medical education, Signs/symptoms of disease process, Diabetic education , Wound care and dressing changes, Nursing assessment with vital signs Instructions: Wound care recommendations: 1. Cleanse right junior programmer analyst lower extremity with normal saline pat dry 2. Apply single layer of adaptic gauze cover with Optifoam AG secure with rolled gauze/paper tape and stockinette. 3. Date and sign all dressings, Change dressing every other day or as needed for dislodgement/exudate management. 4. Please follow up with out patient wound center within 48 hours of discharge - Certification I have seen patient Joanna Barone on 06/18/18. My clinical findings support the need for the requested home health care services because: Deconditioned with increased weakness, Infection with risk of complications I certify that my clinical findings support that this patient is homebound because: Unsafe to leave home unassisted
--- NOTE | 2018-06-18 16:47 | P.PNIM ---
Subjective Interval history: Pt feeling better and requesting discharge to home. Physical Exam Vital signs: 06/18/18 15:49 Temperature 98.0 F Pulse Rate 73 Respiratory Rate 18 Blood Pressure 106/51 L Pulse Oximetry 95 Narrative: GENERAL: This is a well-nourished, well-developed patient, in no apparent distress. CARDIOVASCULAR: Regular rate and rhythm without murmurs, gallops, or rubs. RESPIRATORY: Clear to auscultation. Breath sounds equal bilaterally. No wheezes , rales, or rhonchi. GASTROINTESTINAL: Abdomen soft, non-tender, nondistended. Normal active bowel sounds MUSCULOSKELETAL: Extremities without clubbing, cyanosis, or edema. NEURO: Alert & Oriented x4 to person, place, time, situation. Moves all ext x4 Results - Labs CBC & Chem 7: 06/17/18 17:45 06/18/18 12:27 Assessment and Plan - Assessment (1) Multiple episodes of hypoglycemia Code(s): E16.2 - Hypoglycemia, unspecified Status: Acute Plan: - Pt recently hospitalized in [place] for cat bite and then SNF in [place] - Pt/ report that she had been having recurrent hypoglycemia for several days in a row & EMS was called to their house - scheduled insulin & metformin stopped. - pt's blood sugar improved - Pt will be discharged on amaryl decreased to 1mg daily - Pt to keep home blood sugar log - Pt to f/u with PCP, Dr. Frye, in 1 week - Pt to f/u with House Admin, Dr. Santos in 2 week non-healing ulcer - h/o cat bite - non weight bearing to left foot - f/u with [facility] wound care, Dr. Archuleta - [facility] to evaluate and perform dressing changes. (2) Open wound of left foot Code(s): S91.302A - Unspecified open wound, left foot, initial encounter Status: Acute
== END 2018-06-18 18:03 | disposition home health service (06) ==
LOC: NEPC 17:16 → NEDA 17:16 → NEPHCDU 23:41
PROVIDERS: ADMIT Hospitalist; ATTEND Hospitalist

== ENCOUNTER 2018-07-23 11:30 | Inpatient (IN) ==
[2018-07-23] MEDS ORDERED: Piperacil/Tazo 3.375 GM Premix 50 ML IV.SIG ONE (13:04)
[2018-07-23] MEDS ORDERED: Vancomycin Inj 1 GM/200 ML PIGGYBACK IV.SIG ONE (13:04)
[2018-07-23 13:33] LABS: Baso # (Auto) 0.1 th/mm3 (0.0-0.2); Baso % (Auto) 0.8 % (0.0-2.0); Eos # (Auto) 0.2 th/mm3 (0.0-0.4); Eos % (Auto) 2.4 % (0.0-4.0); Hematocrit 31.7 % (35.0-46.0); Hemoglobin 10.3 gm/dL (11.6-15.3); Lymph # (Auto) 1.6 th/mm3 (1.0-4.8); Lymph % (Auto) 21.4 % (9.0-44.0); Mean Corpuscular HGB Conc 32.3 % (32.0-36.0); Mean Corpuscular Hemoglobin 26.7 pg (27.0-34.0); Mean Corpuscular Volume 82.7 fL (80.0-100.0); Mean Platelet Volume 8.1 fL (7.0-11.0); Mono # (Auto) 0.9 th/mm3 (0.0-0.9); Mono % (Auto) 11.8 % (0.0-8.0); Neut # (Auto) 4.8 th/mm3 (1.8-7.7); Neut % (Auto) 63.6 % (16.0-70.0); Platelet Count 318 th/mm3 (150-450); Red Blood Count 3.84 mil/mm3 (4.00-5.30); White Blood Count 7.6 th/mm3 (4.0-11.0)
[2018-07-23 13:43] LABS: Activated Partial Thrombo Time 30.4 sec (24.3-30.1); INR 1.1 Ratio; Prothrombin Time 11.4 sec (9.8-11.6)
[2018-07-23 13:48] LABS: Albumin 2.8 g/dL (3.4-5.0); Anion Gap 10 meq/L (5-15); Aspartate Aminotransferase 17 U/L (15-37); Blood Urea Nitrogen 28 mg/dL (7-18); Calcium 9.6 mg/dL (8.5-10.1); Carbon Dioxide 23.5 meq/L (21.0-32.0); Chloride 106 meq/L (98-107); Glomerular Filtration Rate 36 mL/min (>89); Glucose,Random 205 mg/dL (74-106); Potassium 4.5 meq/L (3.5-5.1); Sodium 139 meq/L (136-145)
[2018-07-23 13:49] LABS: Alanine Aminotransferase 13 U/L (10-53)
[2018-07-23 13:51] LABS: Alkaline Phosphatase 143 U/L (45-117); Total Protein 7.8 g/dL (6.4-8.2)
[2018-07-23] MEDS ORDERED: Vancomycin Inj 1,000 MG in Sodium Chlor 0.9% Inj 250 ML IV.SIG ONE (14:00)
--- NOTE | 2018-07-23 14:11 | ED ---
HPI General Chief complaint: Extremity Problem,Nontraumatic Stated complaint: sent by her doctor Time Seen by Provider: 07/23/18 12:38 Source: patient Mode of arrival: ambulatory Limitations: no limitations History of Present Illness HPI narrative: Patient is a 77 year old female who comes in due to infection in her left lower leg. She sustained a cat bite a few months ago and has been dealing with infection since then. She had her Achilles tendon removed in an attempt to control this infection. She says she had an MRI done that showed continued infection of her bone and she went to see Dr. Turner yesterday who advised amputation. She says she was prescribed an antibiotic, but she does not. She has been taking Tylenol with codeine for pain. She denies any fever or chills. Severity is moderate. Related Data Home Medications Medication Instructions Recorded Confirmed atorvastatin 80 mg PO HS 06/17/18 07/23/18 bupropion HCl 150 mg PO DAILY 06/17/18 07/23/18 hydrocodone-acetaminophen 1 tab PO Q4-6H PRN MDD 4 06/17/18 07/23/18 lisinopril 10 mg PO DAILY 06/17/18 07/23/18 sertraline 50 mg PO DAILY 06/17/18 07/23/18 glimepiride 2 mg PO QAM 07/23/18 07/23/18 Allergies Allergy/AdvReac Type Severity Reaction Status Date / Time No Known Allergies Allergy Verified 07/23/18 11:49 Review of Systems ROS: all other systems reviewed are negative Constitutional Denies chills and Denies fever(s) ENT Denies dizziness Cardiovascular Denies chest pain and Denies dyspnea Respiratory Denies cough Gastrointestinal Denies nausea and Denies vomiting Musculoskeletal Denies myalgias and Denies arthralgias Integumentary/Breasts Reports sores and Reports wounds Neurologic Denies focal weakness and Denies numbness [facility] Medical History Medical History CAD (coronary artery disease) (Acute) Diabetes (Acute) Stroke (Acute) Social History Social History Substance History: No History of Abuse Second Hand Smoke Exposure: No Smoking Status: Former smoker How Often Do You Have a Drink Containing Alcohol: Monthly or less Recent Travel in [facility] within the Last 8 Weeks: Yes Recent Out of Country Travel within the Last 8 Weeks: No Immunization History Tetanus Immunization: <5 Years Exam Narrative Exam Narrative: GENERAL: Awake and alert, in no acute distress. SKIN: Large wound to the left lower leg, posteriorly. There is erythema surrounding the ankle and the foot. HEAD: Atraumatic. Normocephalic. EYES: Pupils equal and round. No scleral icterus. No injection or drainage. ENT: Mucous membranes pink and moist. NECK: Trachea midline. No JVD. CARDIOVASCULAR: Regular rate and rhythm. No murmur appreciated. RESPIRATORY: No accessory muscle use. Clear to auscultation. Breath sounds equal bilaterally. GASTROINTESTINAL: Abdomen soft, non-tender, nondistended. MUSCULOSKELETAL: Deformity of the left ankle, large wound present. NEUROLOGICAL: Awake and alert. No obvious cranial nerve deficits. Motor grossly within normal limits. Normal speech. PSYCHIATRIC: Appropriate mood and affect; insight and judgment normal. Course Initial Documented Vital Signs Temperature 98.1 F 07/23/18 11:36 Pulse Rate 68 07/23/18 11:36 Respiratory Rate 15 07/23/18 11:36 Blood Pressure 121/58 L 07/23/18 11:36 Pulse Oximetry 98 07/23/18 11:36 Last Documented Vital Signs Temperature 98.1 F 07/23/18 11:36 Pulse Rate 57 L 07/23/18 11:55 Respiratory Rate 16 07/23/18 11:55 Blood Pressure 126/56 L 07/23/18 11:55 Pulse Oximetry 98 07/23/18 11:36 Medical Decision Making MDM Narrative Medical decision making narrative: Is a 77-year-old female who comes in due to infection of her left lower leg. Exam shows a large wound with surrounding erythema. 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 Spoke with Dr. Turner who says that he saw her yesterday and suggested amputation. He advises calling Dr. Triplett for the surgery. Patient given antibiotics and pain medicine. Admitted for further management. Medical Screen Exam Complete: Yes Emergency Medical Condition: Yes Differential Diagnosis Differential Diagnosis: Osteomyelitis versus cellulitis versus abscess Medical Records Medical records reviewed: Yes I reviewed the patient's medical records. Lab Data Lab results reviewed: Yes I reviewed the patient's lab results. Result diagrams: 07/23/18 12:45 07/23/18 12:45 Lab Results 07/23/18 07/23/18 07/23/18 Range/Units 12:45 12:45 12:45 WBC 7.6 (4.0-11.0) th/mm3 RBC 3.84 L (4.00-5.30) mil/mm3 Hgb 10.3 L (11.6-15.3) gm/dL Hct 31.7 L (35.0-46.0) % MCV 82.7 (80.0-100.0) fL MCH 26.7 L (27.0-34.0) pg MCHC 32.3 (32.0-36.0) % RDW 20.0 H (11.6-17.2) % Plt Count 318 (150-450) th/mm3 MPV 8.1 (7.0-11.0) fL Neut % (Auto) 63.6 (16.0-70.0) % Lymph % (Auto) 21.4 (9.0-44.0) % [place] % (Auto) 11.8 H (0.0-8.0) % Eos % (Auto) 2.4 (0.0-4.0) % Baso % (Auto) 0.8 (0.0-2.0) % Neut # (Auto) 4.8 (1.8-7.7) th/mm3 Lymph # (Auto) 1.6 (1.0-4.8) th/mm3 [place] # (Auto) 0.9 (0.0-0.9) th/mm3 Eos # (Auto) 0.2 (0.0-0.4) th/mm3 Baso # (Auto) 0.1 (0.0-0.2) th/mm3 WBC Differential . Differential Comment Auto diff final PT 11.4 (9.8-11.6) sec INR 1.1 Ratio APTT 30.4 H (24.3-30.1) sec Sodium 139 (136-145) meq/L Potassium 4.5 (3.5-5.1) meq/L Chloride 106 (98-107) meq/L Carbon Dioxide 23.5 (21.0-32.0) meq/L Anion Gap 10 (5-15) meq/L BUN 28 H (7-18) mg/dL Creatinine 1.41 H (0.50-1.00) mg/dL Estimated GFR 36 L (>89) mL/min Random Glucose 205 H (74-106) mg/dL Calcium 9.6 (8.5-10.1) mg/dL Total Bilirubin 0.2 (0.2-1.0) mg/dL AST 17 (15-37) U/L ALT 13 (10-53) U/L Alkaline Phosphatase 143 H (45-117) U/L Total Protein 7.8 (6.4-8.2) g/dL Albumin 2.8 L (3.4-5.0) g/dL Discharge Plan Discharge Disposition Patient Disposition: 30 Still Patient Discharge Condition Condition: Stable Discharge Details Diagnosis: Open wound of left foot, Osteomyelitis Physicians Team ED Provider: Catherine Finley Primary Care Provider: Regan Frye Attending Provider: Bautista Quiros Discharge Interventions Interventions: Vital Signs Last Done: 07/23/18 11:55 Status ED Status: Admitted Patient
[2018-07-23] MEDS ORDERED: Acetaminophen 325 MG Tablet PO PRN (14:46)
--- NOTE | 2018-07-23 14:46 | P.HP ---
<Libertad Zambrano - Last Filed: 07/23/18 16:01> History of Present Illness Primary Care Physician: Regan Frye MD Chief Complaint: LLE non healing wound History of Present Illness: This is a 77 year old female patient with a past medical history which includes COPD, DM, HTN, hyperlipidemia, depression, and CVA which affected vision. Patient reports that this past April she had was in [place] and was bitten by her own cat. Then two days later patient presented to the hospital in [place] she reports that she had a total of 4 procedures (2 bedside I&D and two procedures in the OR). Patient had an Achilles tendon resection in an attempt to control this infection. Patient reports that she has taken several antibiotics both IV and PO along the way with no resolution of the infection. Patient was unable to follow up with docs on [place] due to finances. Patient has also been treated by [facility] wound clinic 06/27/18 and 07/11/18. Patient had an MRI done 07/18/18 that showed continued infection of her bone and she went to see Dr. Turner yesterday who advised to proceed to the emergency department for possible BKA. Patient does endorse continued drainage/oozing from right lower extremity medial heel area. Patient denies fevers chills nausea vomiting diarrhea constipation shortness of breath or chest pain. PMH: COPD, DM, HTN, hyperlipidemia, depression PSxH: stent ? left carotid endarterectomy FMH: Reviewed and noncontributory Social history: lives with Rare ETOH use Quit smoking 27 years ago, 35 pack year history - Diagnosis (1) Osteomyelitis Inpatient Certification: I certify that the inpatient services were ordered in accordance with Medicare regulations governing the order. This includes certification that hospital inpatient services are reasonable and necessary and in the case of services not specified as inpatient-only under 42 CFR 419.22(n), that they are appropriately provided as inpatient services in accordance to with the 2-midnight benchmark under 43 CFR 412.3(e) Review of Systems All other systems reviewed negative except as stated in HPI PMFSH - History History Provided By: Patient - Medical History Medical History: Medical History (Last Reviewed 07/23/18 @ 14:23 by Catherine Finley MD) CAD (coronary artery disease) Diabetes Stroke - Tobacco History Second Hand Smoke Exposure: No Smoking Status: Former smoker - Alcohol History How Often Do You Have a Drink Containing Alcohol: Monthly or less - Substance Use History Substance History: No History of Abuse - Travel History Recent Travel in the [place] Within the Last 8 Weeks: Yes Recent Travel Out of the Country Within the Last 8 Weeks: No - Immunization History Tetanus Immunization: <5 Years Medications and Allergies Allergies Allergy/AdvReac Type Severity Reaction Status Date / Time No Known Allergies Allergy Verified 07/23/18 11:49 Home Medications Medication Instructions Recorded Confirmed Type atorvastatin 80 mg PO HS 06/17/18 07/23/18 History bupropion HCl 150 mg PO DAILY 06/17/18 07/23/18 History hydrocodone-acetaminophen 1 tab PO Q4-6H PRN MDD 4 06/17/18 07/23/18 History lisinopril 10 mg PO DAILY 06/17/18 07/23/18 History glimepiride 2 mg PO QAM 07/23/18 07/23/18 History sertraline 100 mg PO DAILY 07/23/18 07/23/18 History Active Medications: Active Medications Vancomycin HCl 1,000 mg/ (Sodium Chloride) 250 mls @ 200 mls/hr IV.SIG ONCE ONE Stop: 07/23/18 15:14 Exam Vital signs: Vital Signs 07/23/18 11:36 07/23/18 11:55 Temperature 98.1 F Pulse Rate 68 57 L Respiratory Rate 15 16 Blood Pressure 121/58 L 126/56 L Pulse Oximetry 98 Intake & Output 07/22/18 07/23/18 07/23/18 18:59 06:59 18:59 Weight 58.967 kg Narrative: GENERAL: This is a well-nourished, well-developed patient, in no apparent distress. CARDIOVASCULAR: Regular rate and rhythm RESPIRATORY: Clear to auscultation. Breath sounds equal bilaterally. . GASTROINTESTINAL: Abdomen soft, non-tender, nondistended. Normal active bowel sounds MUSCULOSKELETAL: Left lower foot dorsiflexed large nonhealing wound left lower extremity with open area medial aspect of the heel NEURO: Alert & Oriented x4 to person, place, time, situation. Moves all ext x4 Results - Labs CBC & Chem 7: 07/23/18 12:45 07/23/18 12:45 Labs: Laboratory Results - last 24 hr 07/23/18 07/23/18 07/23/18 12:45 12:45 12:45 WBC 7.6 RBC 3.84 L Hgb 10.3 L Hct 31.7 L MCV 82.7 MCH 26.7 L MCHC 32.3 RDW 20.0 H Plt Count 318 MPV 8.1 Neut % (Auto) 63.6 Lymph % (Auto) 21.4 [place] % (Auto) 11.8 H Eos % (Auto) 2.4 Baso % (Auto) 0.8 Neut # (Auto) 4.8 Lymph # (Auto) 1.6 [place] # (Auto) 0.9 Eos # (Auto) 0.2 Baso # (Auto) 0.1 WBC Differential . Differential Comment Auto diff final PT 11.4 INR 1.1 APTT 30.4 H Sodium 139 Potassium 4.5 Chloride 106 Carbon Dioxide 23.5 Anion Gap 10 BUN 28 H Creatinine 1.41 H Estimated GFR 36 L Random Glucose 205 H Calcium 9.6 Total Bilirubin 0.2 AST 17 ALT 13 Alkaline Phosphatase 143 H Total Protein 7.8 Albumin 2.8 L Caprini VTE Risk Assessment Caprini VTE Risk Assessment: Moderate/High Risk (score >= 2) Caprini Risk Assessment Model: Point Value = 1 Point Value = 2 Point Value = 3 Point Value = 5 Age 41-60 Minor surgery BMI > 25 kg/m2 Swollen legs Varicose veins or History of unexplained or recurrent spontaneous Oral contraceptives or hormone replacement Sepsis (< 1 month) Serious lung disease, including pneumonia (< 1 month) Abnormal pulmonary function Acute myocardial infarction Congestive heart failure (< 1 month) History of inflammatory bowel disease Medical patient at bed rest Age 61-74 Arthroscopic surgery Major open surgery (> 45 min) Laparoscopic surgery (> 45 min) Malignancy Confined to bed (> 72 hours) Immobilizing plaster cast Central venous access Age >= 75 History of VTE Family history of VTE Factor V Leiden Prothrombin [id number] Lupus anticoagulant Anticardiolipin antibodies Elevated serum homocysteine Heparin-induced thrombocytopenia Other congenital or acquired thrombophilia Stroke (< 1 month) Elective arthroplasty Hip, pelvis, or leg fracture Acute spinal cord injury (< 1 month) Prophylaxis Regimen: Total Risk Factor Score Risk Level Prophylaxis Regimen 0-1 Low Early ambulation 2 Moderate Order ONE of the following: *Sequential Compression Device (SCD) *Heparin 5000 units SQ BID 3-4 Higher Order ONE of the following medications: *Heparin 5000 units SQ TID *Enoxaparin/Lovenox 40 mg SQ daily (WT < 150 kg, CrCl > 30 mL/min) *Enoxaparin/Lovenox 30 mg SQ daily (WT < 150 kg, CrCl > 10-29 mL/min) *Enoxaparin/Lovenox 30 mg SQ BID (WT < 150 kg, CrCl > 30 mL/min) AND/OR *Sequential Compression Device (SCD) 5 or more Highest Order ONE of the following medications: *Heparin 5000 units SQ TID (Preferred with Epidurals) *Enoxaparin/Lovenox 40 mg SQ daily (WT < 150 kg, CrCl > 30 mL/min) *Enoxaparin/Lovenox 30 mg SQ daily (WT < 150 kg, CrCl > 10-29 mL/min) *Enoxaparin/Lovenox 30 mg SQ BID (WT < 150 kg, CrCl > 30 mL/min) AND *Sequential Compression Device (SCD) Assessment and Plan - Assessment (1) Osteomyelitis Code(s): M86.9 - Osteomyelitis, unspecified Status: Acute Plan: This is a 77 year old female patient with a past medical history which includes COPD, DM, HTN, hyperlipidemia, depression, and CVA which affected vision. Patient reports that this past April she had was in [place] and was bitten by her own cat. Then two days later patient presented to the hospital in [place] she reports that she had a total of 4 procedures (2 bedside I&D and two procedures in the OR). Patient had an Achilles tendon resection in an attempt to control this infection. Patient reports that she has taken several antibiotics both IV and PO along the way with no resolution of the infection. Patient was unable to follow up with docs on [place] due to finances. Patient has also been treated by [facility] wound clinic 06/27/18 and 07/11/18. Patient had an MRI done 07/18/18 that showed continued infection of her bone and she went to see Dr. Turner yesterday who advised to proceed to the emergency department for possible BKA. Patient does endorse continued drainage/oozing from right lower extremity medial heel area. Osteomyelitis Outpatient MRI 07/18/18: 1. Hyperflexion deformity if the ankle with the anterior tibial margin impinging on the talar neck and talonavicular joint. 2. Open wound posteriorly adjacent calcaneus with impressive adjacent bony edema. There is also an open wound adjacent to the medial malleolus concerning for osteomyelitis with adjacent bone and very edematous. Prominent defect of the Achilles insertion centrally. 3. Medial subluxation of the posterior tibialis tendon. 4. Edematous musculature in the lower calf posteriorly Patient sent to ER per Dr. Turner for planned surgical resection BKA Given Zosyn and vancomycin in the ER Consult vascular surgery, Dr. Colon DM Accu checks ACHS with SSI HTN Continue patient's home lisinopril Hyperlipidemia Continue patient's home atorvastatin Depression Continue home sertraline and Buspirone COPD Not in acute exacerbation Duonebs as needed DVT prophylaxis with SCDs <Bautista Quiros - Last Filed: 07/27/18 14:06> History of Present Illness Primary Care Physician: Regan Frye MD - Diagnosis (1) Osteomyelitis Inpatient Certification: I certify that the inpatient services were ordered in accordance with Medicare regulations governing the order. This includes certification that hospital inpatient services are reasonable and necessary and in the case of services not specified as inpatient-only under 42 CFR 419.22(n), that they are appropriately provided as inpatient services in accordance to with the 2-midnight benchmark under 43 CFR 412.3(e) [facility] - Medical History Medical History: Medical History (Last Reviewed 07/23/18 @ 14:23 by Catherine Finley MD) CAD (coronary artery disease) Diabetes Stroke Medications and Allergies Active Medications: Active Medications Acetaminophen (Tylenol) 650 mg PO Q4H PRN PRN Reason: Temp > 100.4 Hydrocodone Bitart/Acetaminophen ([place] 5/325) 1 tab PO Q6H PRN PRN Reason: pain 1-10 Last Admin: 07/27/18 08:25 Dose: 1 tab Al Hydroxide/Mg Hydroxide (Milk Of Magnesia Liq) 30 ml PO Q12H PRN PRN Reason: Mild Constipation Atorvastatin Calcium (Lipitor) 80 mg PO HS RADHA Last Admin: 07/26/18 21:06 Dose: 80 mg Bupropion HCl (Wellbutrin Sr) 150 mg PO DAILY RADHA Last Admin: 07/27/18 08:25 Dose: 150 mg Dextrose (D50w Vial) 50 ml IV.PUSH UNSCH PRN PRN Reason: PER HYPOGLYCEMIA PROTOCOL Glimepiride (Amaryl) 2 mg PO DAILYAC [facility] Glucagon (Glucagon Inj) 1 mg OTHER PRN PRN PRN Reason: for Hypoglycemia Protocol Sodium Chloride (Ns Inj) 500 mls @ 30 mls/hr IV.SIG .Q10H [facility] Last Admin: 07/25/18 19:36 Dose: Not Given Insulin Aspart (Novolog Insulin Correctional Sugar Inj) 0 unit SQ ACHS [facility]; Protocol Last Admin: 07/27/18 13:09 Dose: 4 unit Lisinopril (Prinivil) 10 mg PO DAILY [facility] Last Admin: 07/27/18 08:25 Dose: 10 mg Morphine Sulfate (Morphine Inj) 2 mg IV.PUSH Q4H PRN PRN Reason: PAIN 6-10;IF UNABLE TO TAKE PO Last Admin: 07/24/18 20:16 Dose: 2 mg Ondansetron HCl (Zofran Inj) 4 mg IV.PUSH Q6H PRN PRN Reason: NAUSEA OR VOMITING Senna/Docusate Sodium (Melinda-Colace) 1 tab PO BID [facility] Last Admin: 07/27/18 08:25 Dose: 1 tab Sertraline HCl (Zoloft) 100 mg PO DAILY [facility] Last Admin: 07/27/18 08:25 Dose: 100 mg Exam Vital signs: Vital Signs 07/26/18 16:00 07/26/18 20:00 07/26/18 23:56 Temperature 98.1 F 98.1 F 98.5 F Pulse Rate 75 75 57 L Respiratory Rate 18 17 16 Blood Pressure 116/55 L 112/51 L 110/55 L Pulse Oximetry 96 93 L 97 07/27/18 04:00 07/27/18 08:00 07/27/18 12:00 Temperature 98.3 F 98.4 F 98.6 F Pulse Rate 73 79 64 Respiratory Rate 16 20 20 Blood Pressure 121/67 134/60 110/53 L Pulse Oximetry 94 L 94 L 95 07/27/18 14:05 Temperature Pulse Rate Respiratory Rate Blood Pressure Pulse Oximetry 95 Intake & Output 07/26/18 07/27/18 07/27/18 18:59 06:59 18:59 Intake Total 560 / 560 120 / 120 Output Total 300 / 300 Balance 560 / 560 -180 / -180 Weight 57.2 kg Intake: Oral 560 / 560 120 / 120 Output: Urine 300 / 300 Urine/Stool Mix 0 / 0 Other: # Voids 4 Date of Last Bowel Movement 07/22/18 Results - Labs CBC & Chem 7: 07/24/18 10:21 07/24/18 10:21 Labs: Laboratory Results - last 24 hr 07/26/18 07/26/18 07/27/18 18:07 19:30 07:39 POC Glucose 198 H 244 H 178 H 07/27/18 11:27 POC Glucose 232 H Caprini VTE Risk Assessment Caprini Risk Assessment Model: Point Value = 1 Point Value = 2 Point Value = 3 Point Value = 5 Age 41-60 Minor surgery BMI > 25 kg/m2 Swollen legs Varicose veins or History of unexplained or recurrent spontaneous Oral contraceptives or hormone replacement Sepsis (< 1 month) Serious lung disease, including pneumonia (< 1 month) Abnormal pulmonary function Acute myocardial infarction Congestive heart failure (< 1 month) History of inflammatory bowel disease Medical patient at bed rest Age 61-74 Arthroscopic surgery Major open surgery (> 45 min) Laparoscopic surgery (> 45 min) Malignancy Confined to bed (> 72 hours) Immobilizing plaster cast Central venous access Age >= 75 History of VTE Family history of VTE Factor V Leiden Prothrombin [id number] Lupus anticoagulant Anticardiolipin antibodies Elevated serum homocysteine Heparin-induced thrombocytopenia Other congenital or acquired thrombophilia Stroke (< 1 month) Elective arthroplasty Hip, pelvis, or leg fracture Acute spinal cord injury (< 1 month) Prophylaxis Regimen: Total Risk Factor Score Risk Level Prophylaxis Regimen 0-1 Low Early ambulation 2 Moderate Order ONE of the following: *Sequential Compression Device (SCD) *Heparin 5000 units SQ BID 3-4 Higher Order ONE of the following medications: *Heparin 5000 units SQ TID *Enoxaparin/Lovenox 40 mg SQ daily (WT < 150 kg, CrCl > 30 mL/min) *Enoxaparin/Lovenox 30 mg SQ daily (WT < 150 kg, CrCl > 10-29 mL/min) *Enoxaparin/Lovenox 30 mg SQ BID (WT < 150 kg, CrCl > 30 mL/min) AND/OR *Sequential Compression Device (SCD) 5 or more Highest Order ONE of the following medications: *Heparin 5000 units SQ TID (Preferred with Epidurals) *Enoxaparin/Lovenox 40 mg SQ daily (WT < 150 kg, CrCl > 30 mL/min) *Enoxaparin/Lovenox 30 mg SQ daily (WT < 150 kg, CrCl > 10-29 mL/min) *Enoxaparin/Lovenox 30 mg SQ BID (WT < 150 kg, CrCl > 30 mL/min) AND *Sequential Compression Device (SCD) Assessment and Plan - Assessment (1) Osteomyelitis Code(s): M86.9 - Osteomyelitis, unspecified Status: Acute Plan: The exam, history, and the medical decision-making described in the above note were completed with the assistance of the mid-level provider. I reviewed and agree with the findings presented. I attest that I had a [id number] encounter with the patient on the same day, and personally performed and documented my assessment and findings in the medical record. <Libertad Zambrano W - Last Filed: 07/23/18 16:01> (1) Osteomyelitis Qualifiers: Osteomyelitis type: unspecified type Osteomyelitis location: ankle Laterality: left Qualified Code(s): M86.9 - Osteomyelitis, unspecified <Bautista Quiros - Last Filed: 07/27/18 14:06> (1) Osteomyelitis Qualifiers: Osteomyelitis type: unspecified type Osteomyelitis location: ankle Laterality: left Qualified Code(s): M86.9 - Osteomyelitis, unspecified
[2018-07-23] MEDS ORDERED: Dextrose 50% in Water 50 ML Vial IV.PUSH PRN (16:57)
[2018-07-23] MEDS: Insulin NovoLOG Aspart Correctional Sugar Inj SQ SCH ×2 (17:16→21:15)
--- NOTE | 2018-07-23 17:18 | MB ---
cc: JohnnyMarcus B DPM DATE: 07/23/2018 REASON FOR CONSULTATION: Chronic left lower extremity wound. HISTORY OF PRESENT ILLNESS: This is a 77-year-old female who I saw for the first time in clinic yesterday. The patient unfortunately sustained a cat bite injury while she was in [place], which resulted in significant infection requiring multiple procedures including partial resection of the Achilles tendon. The patient was seen by [facility]. Om[facility] Archuleta [facility]. An MRI was ordered. That MRI showed signs of calcaneal osteomyelitis with medial malleolar osteomyelitis and per the patient, a positive MRSA culture. The patient was seen in my clinic for possible limb salvage efforts. The patient had a severe deformity and poor signs of healing. We had a long discussion regarding the possibility of a [id number] amputation to resolve infection and likely allow the patient to ambulate with a prosthesis, as the deformity she has at this point, even if it heals, would not allow for ambulatory status; may be pushing in a wheelchair or transfer. Therefore, the patient was admitted to the hospital by Dr. Quiros and the patient will be seen subsequently by Dr. Nando Triplett as requested by Dr. Archuleta for possible evaluation for elective [id number] amputation due to chronic wound and deformity. PAST MEDICAL HISTORY: CAD, diabetes, stroke. ALLERGIES: NO KNOWN DRUG ALLERGIES. ACTIVE MEDICATIONS: The patient received, I believe one pill of Levaquin from my office. Please see complete medication list in chart. ACTIVE MEDICATIONS. The patient is receivin. Vancomycin. 2. Zosyn. 3. P.r.n. pain medications. 4. Lipitor. 5. Wellbutrin. 6. Lisinopril. 7. Zofran. 8. Melinda-Colace. 10. Zoloft. PHYSICAL EXAMINATION: GENERAL: This is an alert and oriented female seen at bedside with her exhibiting nonlabored respirations. VITAL SIGNS: Temperature afebrile, pulse rate 57, respiratory rate 16, blood pressure 121/54. She is sating 100% on room air. EXTREMITIES: The left lower extremity is examined. There is noted to be significant expansile multi-granular mixed fibrotic ulceration extending from the distal aspect of the calcaneus to the mid proximal leg greater than 15 cm in length and approximately 6 cm - 8 cm in width. There is a mixed serous purulent type drainage. Chronic periwound erythema noted of the wound borders with exposed plantar calcaneus, likely probing down to at least periosteum. The foot is in a calcaneus gait type position with the foot hyper-dorsiflexed that is nonreducible. The patient is not able to get the foot at 90 degrees. The foot appears to be warm. There is a decreased muscle strength upon attempting range of motion of the left foot. Right foot appears to be within normal limits. Pulses are diminished, but they appear to be palpable. The foot is not cool. There appears to be good capillary refill time to digits. LABORATORY DATA: White blood cells 7.6, hemoglobin and hematocrit 10 and 31, platelets 318. Coagulation profile: PT 11.4, INR 1.1. Chem-7: Sodium 131, potassium 4.5, chloride 106, CO2 23.5, BUN is 28, creatinine 1.41. Random glucose is 205, AST 17, ALT 17, alkaline phosphatase is 143, albumin is 2.8. PLAN: Chronic left foot, ankle, and distal leg wound with osteomyelitis verified by MRI in the outpatient setting. Given the chronic deformity and chronic wound, I do think that a [id number] amputation is indicated. Awaiting consultation with Dr. Nando Triplett. I appreciate Medicine admitting this patient. I will continue to follow along. If there are any questions regarding the care; however, I have no plans of limb salvage at this point. LIAM Merida , 04:47 PM , 04:57 PM [place]
--- NOTE | 2018-07-23 18:05 | P.CONVS ---
History of Present Illness Service: Vascular Surgery Consult date: 07/23/18 Requesting Physician: Marcus Smith Reason for Consult: L LE foot wound Primary Care Provider: Regan Frye MD Chief Complaint: LLE non healing wound History of Present Illness: 77 yo with L LE foot wound since April - started with cat bite. Had several debridements including Achilles resection. Has constant pain and contracture of foot to point that it is nonfunctional. Ready for BKA. Has had elissa discussions with and sons. Review of Systems Constitutional: Denies chills, Denies fever(s) PMFSH - History History Provided By: Patient - Medical History Medical History: Medical History (Last Reviewed 07/23/18 @ 18:02 by Bear Triplett MD) CAD (coronary artery disease) Diabetes Stroke - Surgical History Surgical History: Surgical History (Last Reviewed 07/23/18 @ 18:03 by Bear Triplett MD) H/O carotid endarterectomy - Tobacco History Second Hand Smoke Exposure: No Tobacco Use In Past 30 Days: No Smoking Status: Former smoker Tobacco Type: Cigarettes - Alcohol History How Often Do You Have a Drink Containing Alcohol: Never - Substance Use History Substance History: No History of Abuse - Travel History Recent Travel in the [place] Within the Last 8 Weeks: Yes Recent Travel Out of the Country Within the Last 8 Weeks: No - Immunization History Tetanus Immunization: <5 Years Medications and Allergies Active Medications: Active Medications Acetaminophen (Tylenol) 650 mg PO Q4H PRN PRN Reason: Temp > 100.4 Hydrocodone Bitart/Acetaminophen ([place] 5/325) 1 tab PO Q6H PRN PRN Reason: pain 1-10 Al Hydroxide/Mg Hydroxide (Milk Of Magnesia Liq) 30 ml PO Q12H PRN PRN Reason: Mild Constipation Atorvastatin Calcium (Lipitor) 80 mg PO HS RADHA Bupropion HCl (Wellbutrin Sr) 150 mg PO DAILY RADHA Dextrose (D50w Vial) 50 ml IV.PUSH UNSCH PRN PRN Reason: PER HYPOGLYCEMIA PROTOCOL Glucagon (Glucagon Inj) 1 mg OTHER PRN PRN PRN Reason: for Hypoglycemia Protocol Insulin Aspart (Novolog Insulin Correctional Sugar Inj) 0 unit SQ ACHS RADHA; Protocol Last Admin: 07/23/18 17:16 Dose: Not Given Lisinopril (Prinivil) 10 mg PO DAILY RADHA Ondansetron HCl (Zofran Inj) 4 mg IV.PUSH Q6H PRN PRN Reason: NAUSEA OR VOMITING Senna/Docusate Sodium (Melinda-Colace) 1 tab PO BID [facility] Sertraline HCl (Zoloft) 100 mg PO DAILY [facility] Allergies Allergy/AdvReac Type Severity Reaction Status Date / Time No Known Allergies Allergy Verified 07/23/18 11:49 Home Medications Medication Instructions Recorded Confirmed Type atorvastatin 80 mg PO HS 06/17/18 07/23/18 History bupropion HCl 150 mg PO DAILY 06/17/18 07/23/18 History hydrocodone-acetaminophen 1 tab PO Q4-6H PRN MDD 4 06/17/18 07/23/18 History lisinopril 10 mg PO DAILY 06/17/18 07/23/18 History glimepiride 2 mg PO QAM 07/23/18 07/23/18 History sertraline 100 mg PO DAILY 07/23/18 07/23/18 History Physical Exam Vital Signs / I&O: Vital Signs 07/23/18 11:36 07/23/18 11:55 07/23/18 12:15 Temperature 98.1 F Pulse Rate 68 57 L 58 L Respiratory Rate 15 16 16 Blood Pressure 121/58 L 126/56 L 126/56 L Pulse Oximetry 98 07/23/18 15:15 07/23/18 15:38 07/23/18 16:56 Temperature Pulse Rate 60 68 Respiratory Rate 16 16 Blood Pressure 121/54 L 119/56 L Pulse Oximetry 100 07/23/18 17:20 Temperature Pulse Rate 68 Respiratory Rate 18 Blood Pressure 128/82 Pulse Oximetry 98 Intake & Output 07/22/18 07/23/18 07/23/18 18:59 06:59 18:59 Intake Total 300 / 300 Balance 300 / 300 Weight 59.3 kg Intake: IV 300 / 300 Zosyn 3.375 GM Premix 50 ML @ 50 / 50 100 mls/hr IV.SIG ONCE ONE Rx#: [id number] Vancomycin Inj 1,000 MG In NS 250 / 250 Inj 250 ML @ 200 mls/hr IV.SIG ONCE ONE Rx#:[id number] Other: Weight On Admission 59.3 kg Neuro: alert, comfortable, no distress HEENT: NC/AT Neck: no JVD Heart: reg rate Lungs: clear Vascular: palpable L popliteal pulse and R DP pulse Extremities: contracted L foot Achilles heel wound Laboratory Results - last 24 hr 07/23/18 07/23/18 07/23/18 12:45 12:45 12:45 WBC 7.6 RBC 3.84 L Hgb 10.3 L Hct 31.7 L MCV 82.7 MCH 26.7 L MCHC 32.3 RDW 20.0 H Plt Count 318 MPV 8.1 Neut % (Auto) 63.6 Lymph % (Auto) 21.4 [place] % (Auto) 11.8 H Eos % (Auto) 2.4 Baso % (Auto) 0.8 Neut # (Auto) 4.8 Lymph # (Auto) 1.6 [place] # (Auto) 0.9 Eos # (Auto) 0.2 Baso # (Auto) 0.1 WBC Differential . Differential Comment Auto diff final PT 11.4 INR 1.1 APTT 30.4 H Sodium 139 Potassium 4.5 Chloride 106 Carbon Dioxide 23.5 Anion Gap 10 BUN 28 H Creatinine 1.41 H Estimated GFR 36 L POC Glucose Random Glucose 205 H Calcium 9.6 Total Bilirubin 0.2 AST 17 ALT 13 Alkaline Phosphatase 143 H Total Protein 7.8 Albumin 2.8 L 07/23/18 17:16 WBC RBC Hgb Hct MCV MCH MCHC RDW Plt Count MPV Neut % (Auto) Lymph % (Auto) [place] % (Auto) Eos % (Auto) Baso % (Auto) Neut # (Auto) Lymph # (Auto) [place] # (Auto) Eos # (Auto) Baso # (Auto) WBC Differential Differential Comment PT INR APTT Sodium Potassium Chloride Carbon Dioxide Anion Gap BUN Creatinine Estimated GFR POC Glucose 132 H Random Glucose Calcium Total Bilirubin AST ALT Alkaline Phosphatase Total Protein Albumin Assessment and Plan - Assessment (1) Open wound of left foot Code(s): S91.302A - Unspecified open wound, left foot, initial encounter Status: Acute - Plan Non-salvageable L foot, nonambulatory. Needs BKA. Seen with Dr. Kaleb Triplett MD FACS RPVI bolt threader [facility] - Heart and Vascular Surgery at [facility] [phone] (1) Open wound of left foot Qualifiers: Encounter type: subsequent encounter Qualified Code(s): S91.302D - Unspecified open wound, left foot, subsequent encounter
--- NOTE | 2018-07-23 18:24 | P.PNVS ---
Subjective Subjective/Hospital Course: sitting in bed comfortably pain is well controlled Objective Vital Signs / I&O: Vital Signs 07/23/18 11:36 07/23/18 11:55 07/23/18 12:15 Temperature 98.1 F Pulse Rate 68 57 L 58 L Respiratory Rate 15 16 16 Blood Pressure 121/58 L 126/56 L 126/56 L Pulse Oximetry 98 07/23/18 15:15 07/23/18 15:38 07/23/18 16:56 Temperature Pulse Rate 60 68 Respiratory Rate 16 16 Blood Pressure 121/54 L 119/56 L Pulse Oximetry 100 07/23/18 17:20 Temperature Pulse Rate 68 Respiratory Rate 18 Blood Pressure 128/82 Pulse Oximetry 98 Intake & Output 07/22/18 07/23/18 07/23/18 18:59 06:59 18:59 Intake Total 300 / 300 Balance 300 / 300 Weight 59.3 kg Intake: IV 300 / 300 Zosyn 3.375 GM Premix 50 ML @ 50 / 50 100 mls/hr IV.SIG ONCE ONE Rx#: [id number] Vancomycin Inj 1,000 MG In NS 250 / 250 Inj 250 ML @ 200 mls/hr IV.SIG ONCE ONE Rx#:[id number] Other: Weight On Admission 59.3 kg Physical Exam: LLE: large wound involving the heal/ankle. Palpable popliteal pulse Laboratory Results - last 24 hr 07/23/18 07/23/18 07/23/18 12:45 12:45 12:45 WBC 7.6 RBC 3.84 L Hgb 10.3 L Hct 31.7 L MCV 82.7 MCH 26.7 L MCHC 32.3 RDW 20.0 H Plt Count 318 MPV 8.1 Neut % (Auto) 63.6 Lymph % (Auto) 21.4 [place] % (Auto) 11.8 H Eos % (Auto) 2.4 Baso % (Auto) 0.8 Neut # (Auto) 4.8 Lymph # (Auto) 1.6 [place] # (Auto) 0.9 Eos # (Auto) 0.2 Baso # (Auto) 0.1 WBC Differential . Differential Comment Auto diff final PT 11.4 INR 1.1 APTT 30.4 H Sodium 139 Potassium 4.5 Chloride 106 Carbon Dioxide 23.5 Anion Gap 10 BUN 28 H Creatinine 1.41 H Estimated GFR 36 L POC Glucose Random Glucose 205 H Calcium 9.6 Total Bilirubin 0.2 AST 17 ALT 13 Alkaline Phosphatase 143 H Total Protein 7.8 Albumin 2.8 L 07/23/18 17:16 WBC RBC Hgb Hct MCV MCH MCHC RDW Plt Count MPV Neut % (Auto) Lymph % (Auto) [place] % (Auto) Eos % (Auto) Baso % (Auto) Neut # (Auto) Lymph # (Auto) [place] # (Auto) Eos # (Auto) Baso # (Auto) WBC Differential Differential Comment PT INR APTT Sodium Potassium Chloride Carbon Dioxide Anion Gap BUN Creatinine Estimated GFR POC Glucose 132 H Random Glucose Calcium Total Bilirubin AST ALT Alkaline Phosphatase Total Protein Albumin Assessment and Plan - Assessment (1) Open wound of left foot Code(s): S91.302A - Unspecified open wound, left foot, initial encounter Status: Acute - Plan I saw and examined the patient with Dr. Ioana CANCINO not salvageable, Patient will need BKA Will schedule surgery for AM Allen Manuel MD FACS RPV[employer] human resource manager [facility] - Heart and Vascular Surgery at [facility] [phone] (1) Open wound of left foot Qualifiers: Encounter type: subsequent encounter Qualified Code(s): S91.302D - Unspecified open wound, left foot, subsequent encounter
[2018-07-23] MEDS: Senna/Docusate Sodium 8.6/50 MG Tablet PO SCH (21:10)
[2018-07-24] MEDS ORDERED: Chlorhexidine Gluconate 2% 1 Pack (2 Cloths) TOPICAL ONE (01:39)
[2018-07-24] MEDS ORDERED: Metoprolol Tartrate 25 MG Tablet PO ONE (01:39)
[2018-07-24] MEDS ORDERED: Sodium Chlor 0.9% Inj 500 ML IV.SIG SCH (02:00)
[2018-07-24] MEDS ORDERED: Phenylephrine/NS 1000 MCG/10ML Syringe IV.PUSH ONE (07:28)
[2018-07-24] MEDS ORDERED: Lidocaine PF 1% Inj 5 ML Syringe OTHER ONE (07:28)
[2018-07-24] MEDS ORDERED: ceFAZolin 2 GM Premix Inj 2 GM/50 ML PIGGYBACK IV.SIG ONE (07:51)
--- NOTE | 2018-07-24 08:36 | P.PNIM ---
Subjective Interval history: no events overnight Physical Exam Vital signs: Vital Signs 07/23/18 11:36 07/23/18 11:55 07/23/18 12:15 Temperature 98.1 F Pulse Rate 68 57 L 58 L Respiratory Rate 15 16 16 Blood Pressure 121/58 L 126/56 L 126/56 L Pulse Oximetry 98 07/23/18 15:15 07/23/18 15:38 07/23/18 16:56 Temperature Pulse Rate 60 68 Respiratory Rate 16 16 Blood Pressure 121/54 L 119/56 L Pulse Oximetry 100 07/23/18 17:20 07/23/18 20:00 07/24/18 00:00 Temperature 97.5 F L 97.4 F L Pulse Rate 68 75 60 Respiratory Rate 18 16 16 Blood Pressure 128/82 126/61 138/65 Pulse Oximetry 98 98 97 07/24/18 04:00 Temperature 97.6 F Pulse Rate 77 Respiratory Rate 16 Blood Pressure 105/58 L Pulse Oximetry 97 Intake & Output 07/23/18 07/24/18 07/24/18 18:59 06:59 18:59 Intake Total 300 / 300 0 / 0 50 / 50 Output Total 350 / 350 Balance 300 / 300 -350 / -350 50 / 50 Weight 59.3 kg 59.4 kg Intake: IV 300 / 300 50 / 50 Zosyn 3.375 GM Premix 50 ML @ 50 / 50 100 mls/hr IV.SIG ONCE ONE Rx#: [id number] Vancomycin Inj 1,000 MG In NS 250 / 250 Inj 250 ML @ 200 mls/hr IV.SIG ONCE ONE Rx#:[id number] Ancef 2 GM Premix Inj 2 gm In 50 / 50 50 ml @ 0 mls/hr IV.SIG .STK- MED ONE Rx#:[id number] Oral 0 / 0 Output: Urine 350 / 350 Other: # Bowel Movements 0 Weight On Admission 59.3 kg heart reg lung cta abd s/nt ext left foot dorsiflexed open wound calcaneous to calf Results - Labs CBC & Chem 7: 07/24/18 10:21 07/24/18 10:21 Laboratory Results - last 24 hr 07/23/18 07/23/18 07/23/18 12:45 12:45 12:45 WBC 7.6 RBC 3.84 L Hgb 10.3 L Hct 31.7 L MCV 82.7 MCH 26.7 L MCHC 32.3 RDW 20.0 H Plt Count 318 MPV 8.1 Neut % (Auto) 63.6 Lymph % (Auto) 21.4 [place] % (Auto) 11.8 H Eos % (Auto) 2.4 Baso % (Auto) 0.8 Neut # (Auto) 4.8 Lymph # (Auto) 1.6 [place] # (Auto) 0.9 Eos # (Auto) 0.2 Baso # (Auto) 0.1 WBC Differential . Differential Comment Auto diff final PT 11.4 INR 1.1 APTT 30.4 H Sodium 139 Potassium 4.5 Chloride 106 Carbon Dioxide 23.5 Anion Gap 10 BUN 28 H Creatinine 1.41 H Estimated GFR 36 L POC Glucose Random Glucose 205 H Calcium 9.6 Total Bilirubin 0.2 AST 17 ALT 13 Alkaline Phosphatase 143 H Total Protein 7.8 Albumin 2.8 L 07/23/18 17:16 WBC RBC Hgb Hct MCV MCH MCHC RDW Plt Count MPV Neut % (Auto) Lymph % (Auto) [place] % (Auto) Eos % (Auto) Baso % (Auto) Neut # (Auto) Lymph # (Auto) [place] # (Auto) Eos # (Auto) Baso # (Auto) WBC Differential Differential Comment PT INR APTT Sodium Potassium Chloride Carbon Dioxide Anion Gap BUN Creatinine Estimated GFR POC Glucose 132 H Random Glucose Calcium Total Bilirubin AST ALT Alkaline Phosphatase Total Protein Albumin Assessment and Plan - Assessment (1) Osteomyelitis Code(s): M86.9 - Osteomyelitis, unspecified Status: Acute Plan: This is a 77 year old female patient with a past medical history which includes COPD, DM, HTN, hyperlipidemia, depression, and CVA which affected vision. Patient reports that this past April she had was in [place] and was bitten by her own cat. Then two days later patient presented to the hospital in [place] she reports that she had a total of 4 procedures (2 bedside I&D and two procedures in the OR). Patient had an Achilles tendon resection in an attempt to control this infection. Patient reports that she has taken several antibiotics both IV and PO along the way with no resolution of the infection. Patient was unable to follow up with docs on [place] due to finances. Patient has also been treated by [facility] wound clinic 06/27/18 and 07/11/18. Patient had an MRI done 07/18/18 that showed continued infection of her bone and she went to see Dr. Turner yesterday who advised to proceed to the emergency department for possible BKA. Patient does endorse continued drainage/oozing from right lower extremity medial heel area. Osteomyelitis Outpatient MRI 07/18/18: 1. Hyperflexion deformity if the ankle with the anterior tibial margin impinging on the talar neck and talonavicular joint. 2. Open wound posteriorly adjacent calcaneus with impressive adjacent bony edema. There is also an open wound adjacent to the medial malleolus concerning for osteomyelitis with adjacent bone and very edematous. Prominent defect of the Achilles insertion centrally. 3. Medial subluxation of the posterior tibialis tendon. 4. Edematous musculature in the lower calf posteriorly Given Zosyn and vancomycin in the ER Consult vascular surgery, Dr. Colon and [facility] Going for BKA today DM Accu checks ACHS with SSI HTN Continue patient's home lisinopril Hyperlipidemia Continue patient's home atorvastatin Depression Continue home sertraline and Buspirone COPD Not in acute exacerbation Duonebs as needed DVT prophylaxis with SCDs (1) Osteomyelitis Qualifiers: Osteomyelitis type: unspecified type Osteomyelitis location: ankle Laterality: left Qualified Code(s): M86.9 - Osteomyelitis, unspecified
[2018-07-24] MEDS ORDERED: *Meperidine Inj 25 MG/ML Vial PERIprocedural Use ONLY ONE (09:15)
[2018-07-24] MEDS ORDERED: *Ondansetron Inj 4 MG/2 ML Vial PERIprocedural Use ONLY ONE (09:15)
[2018-07-24] MEDS ORDERED: fentaNYL Citrate Inj 100 MCG/2 ML Ampul ONE (09:15)
[2018-07-24] MEDS ORDERED: *morphine SULFATE 4 MG/ML PERIprocedure ONLY ONE (09:35)
--- NOTE | 2018-07-24 09:48 | P.OP ---
Preoperative Diagnosis: Left lower extremity with nonhealing wound, nonsalvageable, dysfunctional Postoperative Diagnosis: Left lower extremity with nonhealing wound, nonsalvageable, dysfunctional Date of procedure: 07/24/18 Procedure: Left below-knee amputation Anesthesia: FOREST Surgeon: Allen Manuel MD Estimated blood loss (mL): 50 Operation and Findings: The patient was taken to the operating room placed supine on the OR table. After general trach anesthesia the patient was prepped and draped in the standard sterile fashion. Timeout was called with all members in the operating room in agreement. An incision was made about 4 cm below the left tibial tuberosity. Dissection was taken down through the subcutaneous tissue. The tibia was dissected and divided. The vascular bundle and sciatic nerve dissected ligated and divided. The fibula was then dissected and anterior tibial artery identified ligated and divided. Following this fibula was divided as well. The posterior flap was created. Hemostasis achieved. Then the wound was closed using multiple 2-0 Vicryl suture and interrupted fashion. This followed by 3-0 Vicryl suture and Monocryl for the skin. Steri-Strips and sterile dressing was applied. Patient tolerated the procedure was taken recovery unit in stable condition.
[2018-07-24] MEDS: Insulin NovoLOG Aspart Correctional Sugar Inj SQ SCH ×4 (09:51→21:00)
[2018-07-24] MEDS: Lisinopril 10 MG Tablet PO SCH (10:24)
[2018-07-24] MEDS: buPROPion 150 MG 12 HR Tablet PO SCH (10:24)
[2018-07-24] MEDS: Senna/Docusate Sodium 8.6/50 MG Tablet PO SCH ×3 (10:25→21:01)
[2018-07-24] MEDS: Sertraline 100 MG Tablet PO SCH (10:26)
[2018-07-24 10:43] LABS: Baso % (Auto) 0.6 % (0.0-2.0); Eos # (Auto) 0.1 th/mm3 (0.0-0.4); Eos % (Auto) 1.8 % (0.0-4.0); Hematocrit 30.7 % (35.0-46.0); Lymph # (Auto) 1.2 th/mm3 (1.0-4.8); Lymph % (Auto) 18.3 % (9.0-44.0); Mean Corpuscular HGB Conc 32.5 % (32.0-36.0); Mean Corpuscular Hemoglobin 26.8 pg (27.0-34.0); Mean Corpuscular Volume 82.3 fL (80.0-100.0); Mean Platelet Volume 7.6 fL (7.0-11.0); Mono # (Auto) 0.5 th/mm3 (0.0-0.9); Mono % (Auto) 7.8 % (0.0-8.0); Neut # (Auto) 4.8 th/mm3 (1.8-7.7); Neut % (Auto) 71.5 % (16.0-70.0); Platelet Count 278 th/mm3 (150-450); Red Blood Count 3.73 mil/mm3 (4.00-5.30); Red Cell Distribution Width 20.2 % (11.6-17.2); White Blood Count 6.8 th/mm3 (4.0-11.0)
[2018-07-24 11:16] LABS: Calcium 8.7 mg/dL (8.5-10.1); Carbon Dioxide 24.4 meq/L (21.0-32.0); Potassium 4.3 meq/L (3.5-5.1)
--- NOTE | 2018-07-24 14:04 | ECG ---
Date Performed: 07/24/2018 Time Performed: 07:03:54 PTAGE: 77 years EKG: Sinus rhythm with frequent PVCs Poor R wave progression, consider age indeterminate anterior infarct PREVIOUS TRACING : 12/17/2006 05.16 The R wave transition has is later. DOCTOR: Goyo Estrada M.D. Interpretating Date/Time 07/24/2018 14:03:13
--- NOTE | 2018-07-24 15:10 | P.DIET ---
Nutritional Evaluation Type of nutrition evaluation: initial Nutrition screening: Weight Loss > 10 lbs Subjective Subjective Comments: Good appetite reported Objective - Diagnosis Osteomyelitis - Objective % IBW: 114 (IBW = 115) Body Weight Used for Calculations: Actual (59.4 kg) Energy Needs - Lower Range (kCal/kg): 30 Energy Needs - Upper Range (kCal/kg): 35 Lower Limit kCal/kg (kCals): 1,782 Upper Limit kCal/kg (kCals): 2,079 Lower Limit Protein Factor (Grams per Kg): 1.2 Upper Limit Protein Factor (Grams per Kg): 1.5 Lower Protein Needs (Protein): 71 Upper Protein Needs (Protein): 89 Fluid Factor (ml/kg): 35 Estimated Fluid Needs (ml): 2,079 Dietitian Reviewed in Medical Record: Current diet, Curent medications, Intake & Output, Labs, Medical history Diet Order: clear liquid Objective Comments: Hx of DM with glu of 126 Assessment Assessment: Pt is at high nutrition risk 2' to dx, reported weight loss and L BKA surgery today. Pt will have high nutritional needs for healing. When diet is advanced, will send Glucerna Shakes on trays and monitor acceptance. Each 8 oz serving provides 220 kcals and 10 gms protein. Pt would also benefit from a daily MVI/ min. RD following. Recommendations: 1. Advance diet per Surgery. Recommend 1800 ADA. 2. Glucerna Shakes tid 3. Please order a daily MVI/min Dietitian to Monitor: Lab values, Supplement acceptance, Intake & Output, Diet tolerance, Weight change, PO Intake, Diet advancement, Wound/skin status, Medical course
[2018-07-24] MEDS: Morphine Sulfate Inj 2 MG/ML Vial IV.PUSH PRN ×2 (15:56→20:16)
[2018-07-25] MEDS: Insulin NovoLOG Aspart Correctional Sugar Inj SQ SCH ×4 (09:28→20:02)
[2018-07-25] MEDS: Sertraline 100 MG Tablet PO SCH (09:30)
[2018-07-25] MEDS: buPROPion 150 MG 12 HR Tablet PO SCH (09:30)
[2018-07-25] MEDS: Senna/Docusate Sodium 8.6/50 MG Tablet PO SCH ×2 (09:30→20:03)
[2018-07-25] MEDS: Lisinopril 10 MG Tablet PO SCH (09:30)
--- NOTE | 2018-07-25 10:19 | P.PNIM ---
Subjective Interval history: pt and asking for a rehab pt appears comfortable. Physical Exam Vital signs: Vital Signs 07/24/18 12:00 07/24/18 16:15 07/24/18 20:00 Temperature 98.8 F 99.1 F 99.7 F H Pulse Rate 55 L 71 78 Respiratory Rate 18 18 16 Blood Pressure 107/49 L 121/58 L 110/62 Pulse Oximetry 100 99 97 07/25/18 00:00 07/25/18 04:00 07/25/18 08:00 Temperature 98.1 F 98.3 F 98.1 F Pulse Rate 84 86 77 Respiratory Rate 16 16 19 Blood Pressure 112/57 L 109/54 L 98/51 L Pulse Oximetry 97 92 L 95 Intake & Output 07/24/18 07/25/18 07/25/18 18:59 06:59 18:59 Intake Total 970 / 970 720 / 720 Output Total 100 / 100 200 / 200 Balance 870 / 870 520 / 520 Weight 56.3 kg Intake: IV 50 / 50 Ancef 2 GM Premix Inj 2 gm In 50 / 50 50 ml @ 0 mls/hr IV.SIG .STK- MED ONE Rx#:[id number] Oral 320 / 320 720 / 720 Anesthesia Amount 600 / 600 Output: Urine 200 / 200 Estimated Blood Loss 100 / 100 Other: # Voids 3 # Bowel Movements 0 left bka. bandaged heart reg lung cta abd s/nt Results - Labs CBC & Chem 7: 07/24/18 10:21 07/24/18 10:21 Laboratory Results - last 24 hr 07/24/18 07/24/18 07/24/18 10:21 10:21 11:53 WBC 6.8 RBC 3.73 L Hgb 10.0 L Hct 30.7 L MCV 82.3 MCH 26.8 L MCHC 32.5 RDW 20.2 H Plt Count 278 MPV 7.6 Neut % (Auto) 71.5 H Lymph % (Auto) 18.3 [place] % (Auto) 7.8 Eos % (Auto) 1.8 Baso % (Auto) 0.6 Neut # (Auto) 4.8 Lymph # (Auto) 1.2 [place] # (Auto) 0.5 Eos # (Auto) 0.1 Baso # (Auto) 0.0 WBC Differential . Differential Comment Auto diff final Sodium 138 Potassium 4.3 Chloride 106 Carbon Dioxide 24.4 Anion Gap 8 BUN 20 H Creatinine 1.12 H Estimated GFR 47 L POC Glucose 123 H Random Glucose 126 H Calcium 8.7 D 07/24/18 07/25/18 17:30 07:57 WBC RBC Hgb Hct MCV MCH MCHC RDW Plt Count MPV Neut % (Auto) Lymph % (Auto) [place] % (Auto) Eos % (Auto) Baso % (Auto) Neut # (Auto) Lymph # (Auto) [place] # (Auto) Eos # (Auto) Baso # (Auto) WBC Differential Differential Comment Sodium Potassium Chloride Carbon Dioxide Anion Gap BUN Creatinine Estimated GFR POC Glucose 173 H 173 H Random Glucose Calcium Microbiology 07/23/18 12:45 Blood - Peripheral Aerobic Blood Culture - Preliminary No growth in 1 day 07/23/18 12:45 Blood - Peripheral Anaerobic Blood Culture - Preliminary No growth in 1 day 07/23/18 13:00 Blood - Peripheral Aerobic Blood Culture - Preliminary No growth in 1 day 07/23/18 13:00 Blood - Peripheral Anaerobic Blood Culture - Preliminary No growth in 1 day Assessment and Plan - Assessment (1) Osteomyelitis Code(s): M86.9 - Osteomyelitis, unspecified Status: Acute Plan: This is a 77 year old female patient with a past medical history which includes COPD, DM, HTN, hyperlipidemia, depression, and CVA which affected vision. Patient reports that this past April she had was in [place] and was bitten by her own cat. Then two days later patient presented to the hospital in [place] she reports that she had a total of 4 procedures (2 bedside I&D and two procedures in the OR). Patient had an Achilles tendon resection in an attempt to control this infection. Patient reports that she has taken several antibiotics both IV and PO along the way with no resolution of the infection. Patient was unable to follow up with docs on [place] due to finances. Patient has also been treated by [facility] wound clinic 06/27/18 and 07/11/18. Patient had an MRI done 07/18/18 that showed continued infection of her bone and she went to see Dr. Turner yesterday who advised to proceed to the emergency department for possible BKA. Patient does endorse continued drainage/oozing from right lower extremity medial heel area. Osteomyelitis Outpatient MRI 07/18/18: 1. Hyperflexion deformity if the ankle with the anterior tibial margin impinging on the talar neck and talonavicular joint. 2. Open wound posteriorly adjacent calcaneus with impressive adjacent bony edema. There is also an open wound adjacent to the medial malleolus concerning for osteomyelitis with adjacent bone and very edematous. Prominent defect of the Achilles insertion centrally. 3. Medial subluxation of the posterior tibialis tendon. 4. Edematous musculature in the lower calf posteriorly Given Zosyn and vancomycin in the ER Consult vascular surgery, Dr. Colon and [facility] podiatry s/p left BKA 07/24 discussed snf/rehab with pt//community case manager. will dc when ok with Vascular. DM Accu checks ACHS with SSI HTN Continue patient's home lisinopril Hyperlipidemia Continue patient's home atorvastatin Depression Continue home sertraline and Buspirone COPD Not in acute exacerbation Duonebs as needed DVT prophylaxis with SCDs (1) Osteomyelitis Qualifiers: Osteomyelitis type: unspecified type Osteomyelitis location: ankle Laterality: left Qualified Code(s): M86.9 - Osteomyelitis, unspecified
--- NOTE | 2018-07-25 11:21 | P.PNVS ---
Subjective Post Op Day #: 1 Procedure: L BKA Subjective/Hospital Course: 77/F S/P L BKA Pt in good spirits this am Pain controlled Surgical dressing to L BKA I/C/D Objective Vital Signs / I&O: Vital Signs 07/24/18 12:00 07/24/18 16:15 07/24/18 20:00 Temperature 98.8 F 99.1 F 99.7 F H Pulse Rate 55 L 71 78 Respiratory Rate 18 18 16 Blood Pressure 107/49 L 121/58 L 110/62 Pulse Oximetry 100 99 97 07/25/18 00:00 07/25/18 04:00 07/25/18 08:00 Temperature 98.1 F 98.3 F 98.1 F Pulse Rate 84 86 77 Respiratory Rate 16 16 19 Blood Pressure 112/57 L 109/54 L 98/51 L Pulse Oximetry 97 92 L 95 Intake & Output 07/24/18 07/25/18 07/25/18 18:59 06:59 18:59 Intake Total 970 / 970 720 / 720 Output Total 100 / 100 200 / 200 Balance 870 / 870 520 / 520 Weight 56.3 kg Intake: IV 50 / 50 Ancef 2 GM Premix Inj 2 gm In 50 / 50 50 ml @ 0 mls/hr IV.SIG .STK- MED ONE Rx#:[id number] Oral 320 / 320 720 / 720 Anesthesia Amount 600 / 600 Output: Urine 200 / 200 Estimated Blood Loss 100 / 100 Other: # Voids 3 # Bowel Movements 0 Exam: Left Knee slightly contracted Surgical dressing I/C/D Laboratory Results - last 24 hr 07/24/18 07/24/18 07/24/18 10:21 11:53 17:30 Sodium 138 Potassium 4.3 Chloride 106 Carbon Dioxide 24.4 Anion Gap 8 BUN 20 H Creatinine 1.12 H Estimated GFR 47 L POC Glucose 123 H 173 H Random Glucose 126 H Calcium 8.7 D 07/25/18 07:57 Sodium Potassium Chloride Carbon Dioxide Anion Gap BUN Creatinine Estimated GFR POC Glucose 173 H Random Glucose Calcium Microbiology 07/23/18 12:45 Aerobic Blood Culture - Preliminary Blood - Peripheral No growth in 2 days Anaerobic Blood Culture - Preliminary No growth in 2 days 07/23/18 13:00 Aerobic Blood Culture - Preliminary Blood - Peripheral No growth in 2 days Anaerobic Blood Culture - Preliminary No growth in 2 days Assessment and Plan - Assessment (1) Open wound of left foot Code(s): S91.302A - Unspecified open wound, left foot, initial encounter Status: Acute - Plan 77/F S/P L BKA POD 1 Knee slightly contracted Discussed and reviewed L Knee exercises to prevent a knee contracture Plan Continue pain control Surgical dressing to be removed in 2 days Advised pt to extend L knee to prevent a knee contracture D/C planning to [facility] Lila L[facility] [phone] Discharge Plannin-2 days to [facility] - Attending Attestation I saw and examined the patient agree with the A/P (1) Open wound of left foot Qualifiers: Encounter type: subsequent encounter Qualified Code(s): S91.302D - Unspecified open wound, left foot, subsequent encounter
[2018-07-26] MEDS: Insulin NovoLOG Aspart Correctional Sugar Inj SQ SCH ×4 (08:32→21:06)
[2018-07-26] MEDS: Senna/Docusate Sodium 8.6/50 MG Tablet PO SCH ×2 (08:32→21:07)
[2018-07-26] MEDS: Lisinopril 10 MG Tablet PO SCH (08:33)
[2018-07-26] MEDS: buPROPion 150 MG 12 HR Tablet PO SCH (08:33)
[2018-07-26] MEDS: Sertraline 100 MG Tablet PO SCH (08:33)
--- NOTE | 2018-07-26 09:26 | P.PNIM ---
Subjective Interval history: no events overnight. some pain at surgical site with movement. Physical Exam Vital signs: Vital Signs 07/25/18 12:00 07/25/18 16:00 07/25/18 20:00 Temperature 98.5 F 98.1 F 99.6 F Pulse Rate 76 70 72 Respiratory Rate 19 18 17 Blood Pressure 106/61 117/53 L 119/58 L Pulse Oximetry 95 96 07/26/18 00:00 07/26/18 04:00 07/26/18 08:00 Temperature 98.5 F 98.6 F 98.0 F Pulse Rate 73 72 80 Respiratory Rate 16 16 18 Blood Pressure 110/57 L 107/59 L 119/61 Pulse Oximetry 93 L 94 L 96 Intake & Output 07/25/18 07/26/18 07/26/18 18:59 06:59 18:59 Intake Total 1200 / 1200 240 / 240 Output Total 500 / 500 Balance 700 / 700 240 / 240 Weight 57.6 kg Intake: Oral 1200 / 1200 240 / 240 Output: Urine 500 / 500 Other: # Voids 1 # Urine Diapers 4 # Bowel Movements 0 0 heart reg lung lung abd s/nt ext left bka Results - Labs CBC & Chem 7: 07/24/18 10:21 07/24/18 10:21 Laboratory Results - last 24 hr 07/25/18 07/25/18 07/25/18 12:18 16:50 19:31 POC Glucose 158 H 162 H 163 H 07/26/18 07:28 POC Glucose 148 H Microbiology 07/23/18 12:45 Blood - Peripheral Aerobic Blood Culture - Preliminary No growth in 2 days 07/23/18 12:45 Blood - Peripheral Anaerobic Blood Culture - Preliminary No growth in 2 days 07/23/18 13:00 Blood - Peripheral Aerobic Blood Culture - Preliminary No growth in 2 days 07/23/18 13:00 Blood - Peripheral Anaerobic Blood Culture - Preliminary No growth in 2 days Assessment and Plan - Assessment (1) Osteomyelitis Code(s): M86.9 - Osteomyelitis, unspecified Status: Acute Plan: This is a 77 year old female patient with a past medical history which includes COPD, DM, HTN, hyperlipidemia, depression, and CVA which affected vision. Patient reports that this past April she had was in [place] and was bitten by her own cat. Then two days later patient presented to the hospital in [place] she reports that she had a total of 4 procedures (2 bedside I&D and two procedures in the OR). Patient had an Achilles tendon resection in an attempt to control this infection. Patient reports that she has taken several antibiotics both IV and PO along the way with no resolution of the infection. Patient was unable to follow up with docs on [place] due to finances. Patient has also been treated by [facility] wound clinic 06/27/18 and 07/11/18. Patient had an MRI done 07/18/18 that showed continued infection of her bone and she went to see Dr. Turner yesterday who advised to proceed to the emergency department for possible BKA. Patient does endorse continued drainage/oozing from right lower extremity medial heel area. Osteomyelitis Outpatient MRI 07/18/18: 1. Hyperflexion deformity if the ankle with the anterior tibial margin impinging on the talar neck and talonavicular joint. 2. Open wound posteriorly adjacent calcaneus with impressive adjacent bony edema. There is also an open wound adjacent to the medial malleolus concerning for osteomyelitis with adjacent bone and very edematous. Prominent defect of the Achilles insertion centrally. 3. Medial subluxation of the posterior tibialis tendon. 4. Edematous musculature in the lower calf posteriorly Given Zosyn and vancomycin in the ER Consult vascular surgery, Dr. 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 plan for dc to [place] on Sunday. DM Accu checks ACHS with SSI HTN Continue patient's home lisinopril Hyperlipidemia Continue patient's home atorvastatin Depression Continue home sertraline and Buspirone COPD Not in acute exacerbation Duonebs as needed DVT prophylaxis with SCDs (1) Osteomyelitis Qualifiers: Osteomyelitis type: unspecified type Osteomyelitis location: ankle Laterality: left Qualified Code(s): M86.9 - Osteomyelitis, unspecified
--- NOTE | 2018-07-26 12:21 | P.PNVS ---
Subjective Post Op Day #: 2 Procedure: L BKA Subjective/Hospital Course: 77/F S/P L BKA Pt in bed reading Pain controlled Surgical dressing to L BKA I/C/D with limb guard placed Objective Vital Signs / I&O: Vital Signs 07/25/18 16:00 07/25/18 20:00 07/26/18 00:00 Temperature 98.1 F 99.6 F 98.5 F Pulse Rate 70 72 73 Respiratory Rate 18 17 16 Blood Pressure 117/53 L 119/58 L 110/57 L Pulse Oximetry 95 96 93 L 07/26/18 04:00 07/26/18 08:00 07/26/18 11:48 Temperature 98.6 F 98.0 F 97.9 F Pulse Rate 72 80 72 Respiratory Rate 19 Blood Pressure 107/59 L 119/61 123/53 L Pulse Oximetry 94 L 96 95 Intake & Output 07/25/18 07/26/18 07/26/18 18:59 06:59 18:59 Intake Total 1200 / 1200 240 / 240 Output Total 500 / 500 Balance 700 / 700 240 / 240 Weight 57.6 kg Intake: Oral 1200 / 1200 240 / 240 Output: Urine 500 / 500 Other: # Voids 1 # Urine Diapers 4 # Bowel Movements 0 0 Exam: Left Knee extended in limb guard Improved mobility to L LE Surgical dressing I/C/D Laboratory Results - last 24 hr 07/25/18 07/25/18 07/25/18 12:18 16:50 19:31 POC Glucose 158 H 162 H 163 H 07/26/18 07:28 POC Glucose 148 H Microbiology 07/23/18 12:45 Aerobic Blood Culture - Preliminary Blood - Peripheral No growth in 3 days Anaerobic Blood Culture - Preliminary No growth in 3 days 07/23/18 13:00 Aerobic Blood Culture - Preliminary Blood - Peripheral No growth in 3 days Anaerobic Blood Culture - Preliminary No growth in 3 days Assessment and Plan - Assessment (1) Open wound of left foot Code(s): S91.302A - Unspecified open wound, left foot, initial encounter Status: Acute - Plan 77/F S/P L BKA POD 2 L Knee w/ improved mobility Discussed and reviewed L Knee exercises to prevent a knee contracture Plan Continue pain control Surgical dressing to be removed tomorrow Continue to encourage pt to extend L knee to prevent a knee contracture D/C planning to [facility] Lila Lala NP [facility] [phone] [facility]ann[facility] (1) Open wound of left foot Qualifiers: Encounter type: subsequent encounter Qualified Code(s): S91.302D - Unspecified open wound, left foot, subsequent encounter
[2018-07-27] MEDS: Lisinopril 10 MG Tablet PO SCH (08:25)
[2018-07-27] MEDS: Sertraline 100 MG Tablet PO SCH (08:25)
[2018-07-27] MEDS: buPROPion 150 MG 12 HR Tablet PO SCH (08:25)
[2018-07-27] MEDS: Senna/Docusate Sodium 8.6/50 MG Tablet PO SCH ×2 (08:25→21:39)
[2018-07-27] MEDS: Insulin NovoLOG Aspart Correctional Sugar Inj SQ SCH ×4 (08:26→22:35)
--- NOTE | 2018-07-27 10:10 | P.PNIM ---
Subjective Interval history: pt doing ok. eating breakfast Physical Exam Vital signs: Vital Signs 07/26/18 11:48 07/26/18 16:00 07/26/18 20:00 Temperature 97.9 F 98.1 F 98.1 F Pulse Rate 72 75 75 Respiratory Rate 19 18 17 Blood Pressure 123/53 L 116/55 L 112/51 L Pulse Oximetry 95 96 93 L 07/26/18 23:56 07/27/18 04:00 07/27/18 08:00 Temperature 98.5 F 98.3 F 98.4 F Pulse Rate 57 L 73 79 Respiratory Rate 16 16 20 Blood Pressure 110/55 L 121/67 134/60 Pulse Oximetry 97 94 L 94 L Intake & Output 07/26/18 07/27/18 07/27/18 18:59 06:59 18:59 Intake Total 560 / 560 120 / 120 Output Total 300 / 300 Balance 560 / 560 -180 / -180 Weight 57.2 kg Intake: Oral 560 / 560 120 / 120 Output: Urine 300 / 300 Urine/Stool Mix 0 / 0 Other: # Voids 4 heart reg lung cta abd s/nt ext left bka Results - Labs CBC & Chem 7: 07/24/18 10:21 07/24/18 10:21 Laboratory Results - last 24 hr 07/26/18 07/26/18 07/26/18 13:22 18:07 19:30 POC Glucose 170 H 198 H 244 H 07/27/18 07:39 POC Glucose 178 H Microbiology 07/23/18 12:45 Blood - Peripheral Aerobic Blood Culture - Preliminary No growth in 3 days 07/23/18 12:45 Blood - Peripheral Anaerobic Blood Culture - Preliminary No growth in 3 days 07/23/18 13:00 Blood - Peripheral Aerobic Blood Culture - Preliminary No growth in 3 days 07/23/18 13:00 Blood - Peripheral Anaerobic Blood Culture - Preliminary No growth in 3 days Assessment and Plan - Assessment (1) Osteomyelitis Code(s): M86.9 - Osteomyelitis, unspecified Status: Acute Plan: This is a 77 year old female patient with a past medical history which includes COPD, DM, HTN, hyperlipidemia, depression, and CVA which affected vision. Patient reports that this past April she had was in [place] and was bitten by her own cat. Then two days later patient presented to the hospital in [place] she reports that she had a total of 4 procedures (2 bedside I&D and two procedures in the OR). Patient had an Achilles tendon resection in an attempt to control this infection. Patient reports that she has taken several antibiotics both IV and PO along the way with no resolution of the infection. Patient was unable to follow up with docs on [place] due to finances. Patient has also been treated by [facility] wound clinic 06/27/18 and 07/11/18. Patient had an MRI done 07/18/18 that showed continued infection of her bone and she went to see Dr. Turner yesterday who advised to proceed to the emergency department for possible BKA. Patient does endorse continued drainage/oozing from right lower extremity medial heel area. Osteomyelitis Outpatient MRI 07/18/18: 1. Hyperflexion deformity if the ankle with the anterior tibial margin impinging on the talar neck and talonavicular joint. 2. Open wound posteriorly adjacent calcaneus with impressive adjacent bony edema. There is also an open wound adjacent to the medial malleolus concerning for osteomyelitis with adjacent bone and very edematous. Prominent defect of the Achilles insertion centrally. 3. Medial subluxation of the posterior tibialis tendon. 4. Edematous musculature in the lower calf posteriorly Given Zosyn and vancomycin in the ER Consult vascular surgery, Dr. 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 plan for dc to [place] on Sunday. DM Accu checks ACHS with SSI resume her oha amaryl. HTN Continue patient's home lisinopril Hyperlipidemia Continue patient's home atorvastatin Depression Continue home sertraline and Buspirone COPD Not in acute exacerbation Duonebs as needed DVT prophylaxis with SCDs (1) Osteomyelitis Qualifiers: Osteomyelitis type: unspecified type Osteomyelitis location: ankle Laterality: left Qualified Code(s): M86.9 - Osteomyelitis, unspecified
--- NOTE | 2018-07-27 10:34 | P.PNVS ---
Subjective Post Op Day #: 3 Procedure: L BKA Subjective/Hospital Course: 77/F S/P L BKA Pt in bed reading Pain controlled Surgical dressing to L BKA I/C/D with limb guard placed Objective Vital Signs / I&O: Vital Signs 07/26/18 11:48 07/26/18 16:00 07/26/18 20:00 Temperature 97.9 F 98.1 F 98.1 F Pulse Rate 72 75 75 Respiratory Rate 19 18 17 Blood Pressure 123/53 L 116/55 L 112/51 L Pulse Oximetry 95 96 93 L 07/26/18 23:56 07/27/18 04:00 07/27/18 08:00 Temperature 98.5 F 98.3 F 98.4 F Pulse Rate 57 L 73 79 Respiratory Rate 16 16 20 Blood Pressure 110/55 L 121/67 134/60 Pulse Oximetry 97 94 L 94 L Intake & Output 07/26/18 07/27/18 07/27/18 18:59 06:59 18:59 Intake Total 560 / 560 120 / 120 Output Total 300 / 300 Balance 560 / 560 -180 / -180 Weight 57.2 kg Intake: Oral 560 / 560 120 / 120 Output: Urine 300 / 300 Urine/Stool Mix 0 / 0 Other: # Voids 4 Exam: Left BKA wound clean dry intact viable posterior flap. Laboratory Results - last 24 hr 07/26/18 07/26/18 07/26/18 13:22 18:07 19:30 POC Glucose 170 H 198 H 244 H 07/27/18 07:39 POC Glucose 178 H Microbiology 07/23/18 12:45 Aerobic Blood Culture - Preliminary Blood - Peripheral No growth in 3 days Anaerobic Blood Culture - Preliminary No growth in 3 days 07/23/18 13:00 Aerobic Blood Culture - Preliminary Blood - Peripheral No growth in 3 days Anaerobic Blood Culture - Preliminary No growth in 3 days Assessment and Plan - Assessment (1) Open wound of left foot Code(s): S91.302A - Unspecified open wound, left foot, initial encounter Status: Acute - Plan 77/F S/P L BKA POD 2 L Knee w/ improved mobility Discussed and reviewed L Knee exercises to prevent a knee contracture Plan Continue pain control Surgical dressing was changed this morning. Patient wound is healing appropriately. Stable for discharge from vascular standpoint. Discharge Plannin-2 days to [facility] (1) Open wound of left foot Qualifiers: Encounter type: subsequent encounter Qualified Code(s): S91.302D - Unspecified open wound, left foot, subsequent encounter
[2018-07-28] MEDS: Glimepiride 2 MG Tablet PO SCH (07:41)
[2018-07-28] MEDS ORDERED: Bisacodyl 10 MG Supp RECTAL PRN (08:31)
--- NOTE | 2018-07-28 08:33 | P.PNIM ---
Subjective Interval history: pt doing ok. no new complaints Physical Exam Vital signs: Vital Signs 07/27/18 12:00 07/27/18 14:05 07/27/18 16:00 Temperature 98.6 F 98.7 F Pulse Rate 64 48 L Respiratory Rate 20 20 Blood Pressure 110/53 L 115/57 L Pulse Oximetry 95 95 97 07/27/18 20:00 07/28/18 00:00 07/28/18 04:00 Temperature 98.0 F 97.9 F 98.9 F Pulse Rate 71 67 63 Respiratory Rate 20 17 16 Blood Pressure 138/61 117/57 L 125/56 L Pulse Oximetry 96 94 L 94 L Intake & Output 07/27/18 07/28/18 07/28/18 18:59 06:59 18:59 Weight 58.5 kg Other: # Voids 3 1 Date of Last Bowel Movement 07/22/18 07/22/18 # Bowel Movements 0 0 left knee covered heart reg lung cta Results - Labs CBC & Chem 7: 07/24/18 10:21 07/24/18 10:21 Laboratory Results - last 24 hr 07/27/18 07/27/18 07/27/18 11:27 16:54 21:38 POC Glucose 232 H 190 H 248 H 07/28/18 07:31 POC Glucose 176 H Microbiology 07/23/18 12:45 Blood - Peripheral Aerobic Blood Culture - Preliminary No growth in 4 days 07/23/18 12:45 Blood - Peripheral Anaerobic Blood Culture - Preliminary No growth in 4 days 07/23/18 13:00 Blood - Peripheral Aerobic Blood Culture - Preliminary No growth in 4 days 07/23/18 13:00 Blood - Peripheral Anaerobic Blood Culture - Preliminary No growth in 4 days Assessment and Plan - Assessment (1) Osteomyelitis Code(s): M86.9 - Osteomyelitis, unspecified Status: Acute Plan: Assessment (1) Osteomyelitis Code(s): M86.9 - Osteomyelitis, unspecified Status: Acute Plan: This is a 77 year old female patient with a past medical history which includes COPD, DM, HTN, hyperlipidemia, depression, and CVA which affected vision. Patient reports that this past April she had was in [place] and was bitten by her own cat. Then two days later patient presented to the hospital in [place] she reports that she had a total of 4 procedures (2 bedside I&D and two procedures in the OR). Patient had an Achilles tendon resection in an attempt to control this infection. Patient reports that she has taken several antibiotics both IV and PO along the way with no resolution of the infection. Patient was unable to follow up with docs on [place] due to finances. Patient has also been treated by [facility] wound clinic 06/27/18 and 07/11/18. Patient had an MRI done 07/18/18 that showed continued infection of her bone and she went to see Dr. Turner yesterday who advised to proceed to the emergency department for possible BKA. Patient does endorse continued drainage/oozing from right lower extremity medial heel area. Osteomyelitis Outpatient MRI 07/18/18: 1. Hyperflexion deformity if the ankle with the anterior tibial margin impinging on the talar neck and talonavicular joint. 2. Open wound posteriorly adjacent calcaneus with impressive adjacent bony edema. There is also an open wound adjacent to the medial malleolus concerning for osteomyelitis with adjacent bone and very edematous. Prominent defect of the Achilles insertion centrally. 3. Medial subluxation of the posterior tibialis tendon. 4. Edematous musculature in the lower calf posteriorly Given Zosyn and vancomycin in the ER Consult vascular surgery, Dr. Colon and Johnny podiatry s/p left BKA 07/24 discussed snf/rehab with pt//case management coordinator. plan for dc to [place] on Sunday. laxatives ordered. DM Accu checks ACHS with SSI resume her oha amaryl. HTN Continue patient's home lisinopril Hyperlipidemia Continue patient's home atorvastatin Depression Continue home sertraline and Buspirone COPD Not in acute exacerbation Duonebs as needed DVT prophylaxis with SCDs _ (1) Osteomyelitis Qualifiers: Osteomyelitis type: unspecified type Osteomyelitis location: ankle Laterality: left Qualified Code(s): M86.9 - Osteomyelitis, unspecified
[2018-07-28] MEDS: Insulin NovoLOG Aspart Correctional Sugar Inj SQ SCH ×4 (09:04→21:43)
[2018-07-28] MEDS: Senna/Docusate Sodium 8.6/50 MG Tablet PO SCH ×2 (09:05→21:44)
[2018-07-28] MEDS: Lisinopril 10 MG Tablet PO SCH (09:05)
[2018-07-28] MEDS: buPROPion 150 MG 12 HR Tablet PO SCH (09:05)
[2018-07-28] MEDS: Sertraline 100 MG Tablet PO SCH (09:05)
[2018-07-29] MEDS: Insulin NovoLOG Aspart Correctional Sugar Inj SQ SCH (09:05)
[2018-07-29] MEDS: Lisinopril 10 MG Tablet PO SCH (09:08)
[2018-07-29] MEDS: Glimepiride 2 MG Tablet PO SCH (09:08)
[2018-07-29] MEDS: Sertraline 100 MG Tablet PO SCH (09:09)
[2018-07-29] MEDS: Senna/Docusate Sodium 8.6/50 MG Tablet PO SCH (09:09)
[2018-07-29] MEDS: buPROPion 150 MG 12 HR Tablet PO SCH (09:09)
[2018-07-29 09:29] VITALS: BP 114/58; PULSE 75; RESP 18; TEMP 98.5; O2SAT 98
== END 2018-07-29 10:43 ==
LOC: NEPE 11:30 → NEDA 14:20 → N04 17:29
PROVIDERS: ADMIT Hospitalist; ATTEND Hospitalist